=== PATIENT | female | born 1950 | race Caucasian/White ===

== ENCOUNTER 2019-05-04 12:49 | Outpatient (CLI) | payer MEDICARE, MEDICAID, SELFPAY ==
--- NOTE | 2019-05-04 13:19 | MR_ITS ---
WS: [id number] MRI LUMBAR SPINE WITH CONTRAST TECHNIQUE: Sagittal T1, T2 and STIR imaging. Axial T1 and T2 imaging. Post gadolinium imaging was obt ained. CLINICAL INFORMATION: LUMBAR POST-LAMINECTOMY SYNDROME COMPARISON: MRI FINDINGS: Mild lumbar curve. No acute compression. Grade 1 anterolisthesis L4 on L5 has progressed since 2017. Anterolisthesis measures 6 mm. Disc desic cation L2-3 has progressed since 2017 with endplate edema. T2 hyperintensity in the disc space with p rominent endplate and paravertebral and epidural enhancement. Findings may be degenerative/inflammato ry however considering prominent enhancement and T2 hyperintensity in the disc space, discitis is an additional consideration. No epidural abscess. No endplate erosion. Recommend correlation for infecti on. L1-L2: Tiny left foraminal protrusion. Mild left and no significant right foraminal narrowing. Mild f acet arthropathy. L2-L3: Disc desiccation with endplate edema. Mild disc bulging with osteophytic ridging. Mild right a nd no significant left foraminal narrowing. Moderate facet arthropathy. Mild central canal stenosis. L3-L4: No significant disc bulging. Mild facet arthropathy. Spinal canal and foramen are patent. L4-L5: Grade 1 anterolisthesis. Right pericentral disc bulging with impingement on the right subartic ular recess. Mild/moderate facet arthropathy. Moderate right and mild left foraminal narrowing. Prior hemilaminectomy defects. Normal postoperative enhancement. L5-S1: Small shallow central disc protrusion with slight effacement of the ventral thecal sac. Spinal canal is patent. Mild left and no significant right foraminal narrowing. Mild facet arthropathy. Visualized pelvic bony structures: Normal. Paravertebral soft tissues: Normal. MR/MR lumbar spine wo/w con [id number] IMPRESSION: 1. Disc desiccation at L2-L3 has progressed with T2 signal abnormality in the disc space. Endplate edema with paravertebral enhancement. Differential conside rations include degenerative arthritis versus discitis. Recommend correlation f or infection and interval follow-up with MRI in 4-6 weeks if suspicion for infe ction. No endplate erosion. 2. Grade 1 anterolisthesis L4 on L5 has increased compared to previous measuri ng 6 mm today. Mild narrowing of the right subarticular recess with moderate ri ght foraminal narrowing. Impingement on the exiting right L4 nerve root. 3. Prior laminectomy defects L4-5. 4. Shallow central protrusion L5-S1 contacts the traversing S1 nerve roots. Mi ld left L5-S1 foraminal narrowing. 5. C6 moderate central canal stenosis in the cervical spine seen on the instrumentation fitter imaging. This can be followed up with MRI.
[2019-05-04 15:46] LABS: Blood Urea Nitrogen 15 mg/dL (8-23); Glomerular Filtration Rate 62.1 mL/min (90-130)
== END 2019-05-04 12:50 | disposition home or self-care (01) ==
PROVIDERS: PCP Family Medicine; Visit Provider Licensed Practical Nurse
DX: M96.1 Postlaminectomy syndrome, not elsewhere classified (principal); M51.27 Other intervertebral disc displacement, lumbosacral region; M48.02 Spinal stenosis, cervical region
CPT/HCPCS: 72158; 82565; 84520; A9579

== ENCOUNTER → 2019-05-11 18:08 | Outpatient (BNVA) | payer MEDICARE, MEDICAID, SELFPAY | PROVIDERS: PCP Family Medicine; Visit Provider Licensed Practical Nurse | DX: M46.40 Discitis, unspecified, site unspecified (principal) | CPT/HCPCS: 80053; 85007; 85027; 85651; 86140 ==

== ENCOUNTER 2019-06-04 14:16 | Outpatient (CLI) | payer MEDICARE, MEDICAID, SELFPAY ==
--- NOTE | 2019-06-04 15:15 | MR_ITS ---
WS: [id number] MRI LUMBAR SPINE NONCONTRAST TECHNIQUE: Sagittal T1, T2 and STIR imaging. Axial T1 and T2 imaging. CLINICAL INFORMATION: Discitis COMPARISON: MRI May 04, 2019 FINDINGS: Stable grade 1 anterolisthesis L4 on L5 measuring 6 mm. Again seen is T2 signal normality in the disc space at L2-3 with disc desiccation and endplate edema. Overall this appears unchanged in appearance since May 04, 2019. No evidence of endplate erosion or progressed edema. No evidence of paravert ebral or epidural abscess. L1-L2: Tiny left foraminal protrusion. Mild left and no significant right foraminal narrowing. Mild f acet arthropathy. L2-L3: Disc desiccation with endplate edema. Mild disc bulging with osteophytic ridging. Mild right a nd no significant left foraminal narrowing. Moderate facet arthropathy. Mild central canal stenosis. L3-L4: No significant disc bulging. Mild facet arthropathy. Spinal canal and foramen are patent. L4-L5: Grade 1 anterolisthesis. Right pericentral disc bulging with impingement on the right subartic ular recess. Moderate facet arthropathy. Moderate right and mild left foraminal narrowing. Prior chris laminectomy defects. L5-S1: Small shallow central disc protrusion with slight effacement of the ventral thecal sac. Spina l canal is patent. Mild left and no significant right foraminal narrowing. Mild facet arthropathy. MR/MR lumbar spine wo con* [id number] IMPRESSION: 1. Stable disc desiccation at L2-3 with T2 signal abnormality in the disc spac e. Stable endplate edema. No evidence of endplate erosion or bony destruction. No significant interval changes. Differential considerations include degenerati ve arthritis or indolent discitis considering stability. 2. No other significant changes. 3. Stable grade 1 anterolisthesis L4 on L5 measuring 6 mm.
== END 2019-06-04 14:17 | disposition home or self-care (01) ==
PROVIDERS: PCP Family Medicine; Visit Provider Licensed Practical Nurse
DX: M46.46 Discitis, unspecified, lumbar region (principal)
CPT/HCPCS: 72148

== ENCOUNTER 2019-07-25 10:36 | Outpatient (CLI) | payer MEDICARE, MEDICAID, SELFPAY ==
--- NOTE | 2019-07-25 10:51 | MR_ITS ---
WS: [id number] MRI LUMBAR SPINE NONCONTRAST HISTORY: Discitis Patient was unable to complete examination with contrast due to previous significant muscle spasms. D ue to pain and spasms only noncontrast exam was performed. COMPARISON: 06/04/2019 TECHNIQUE: Sagittal and axial multisequence imaging is submitted. Advanced degenerative changes in the cervical spine with multilevel areas of stenosis. L4 anterolisthesis by 7.1 mm with unroofing of the disc. There is disc space narrowing throughout the lumbar spine. Moderate narrowing of the L2-3 disc space. Low signal on the T1 sequences within the adjacent endplat es and increased on the T2 and FLAIR sequence. The amount of increased signal is slightly improved. T here is continued fluid along the disc space. No progression of disease. Enhancement cannot be evalua ruma as patient was unable to tolerate the examination and postcontrast imaging. Conus terminates normally at L1-2 disc level. L1-L2: Mild facet joint arthritis. Mild bilateral foraminal narrowing. L2-L3: Annular disc bulging with facet arthropathy. No epidural fluid collection. Mild bilateral fora job narrowing. Mild facet arthropathy. L3-L4: Mild annular disc bulging without stenosis. L4-L5: Grade 1 anterolisthesis with unroofing of the disc. Anterolisthesis by 7.1 mm. RIGHT paracentr al disc bulging and herniation. There is impingement into the RIGHT subarticular recess and foramen. Moderate RIGHT subarticular and foraminal stenosis. Mild on the LEFT. L5-S1: Mild annular disc bulging. Mild LEFT foraminal stenosis. Paraspinal soft tissues are negative. No edema. Mild atrophy of the psoas muscles. RIGHT renal cyst. MR/MR lumbar spine wo con* [id number] IMPRESSION: 1. Limited evaluation. Patient was unable to tolerate postcontrast evaluation. 2. Marrow signal and the signal within the disc at L2-3 is similar to prior st udies with no progression or epidural abscess. This may be degenerative in etio logy or low-grade/indolent infection. Long-term stability is evident. 3. Moderate-sized RIGHT paracentral disc herniation at L4-5 with moderate RIGH T subarticular recess and foraminal stenosis. No interval change. 4. L4 anterolisthesis by 7.1 mm is unchanged.
--- NOTE | 2019-07-25 10:51 | XR_ITS ---
WS: [id number] LATERAL LUMBAR SPINE: 3 view. Lateral radiographs are performed in upright neutral, flexion and extension to the patient's toleranc e. HISTORY: Low back pain COMPARISON: 08/06/2016 L4 anterolisthesis by 13.3 mm on neutral imaging. Slight increased to 15.8 mm with flexion and 14 mm during extension. The anterolisthesis has increased from approximately 9 mm as seen in 2017. Advanced degenerative changes at L2-3 disc level. Mild changes throughout the remaining disc levels. No fractures. Slight rotation of vertebral bodies due to the scoliosis. Calcifications scattered throughout the abdominal aorta. XR/XR lumbar spine f/e only [id number] IMPRESSION: 1. Mild flexion extension instability of L4 with grade 2 spondylolisthesis. 2. Progression of degenerative changes throughout the lumbar spine since 2017.
[2019-07-25 12:11] LABS: Blood Urea Nitrogen 21 mg/dL (8-23); Glomerular Filtration Rate 40.6 mL/min (90-130)
== END 2019-07-25 10:37 | disposition home or self-care (01) ==
LOC: RADWPI 10:46
PROVIDERS: PCP Family Medicine; Visit Provider Licensed Practical Nurse
DX: M96.1 Postlaminectomy syndrome, not elsewhere classified (principal); M53.2X6 Spinal instabilities, lumbar region
CPT/HCPCS: 72120; 72148; 82565; 84520

== ENCOUNTER 2019-08-06 08:57 | Outpatient (CLI) | payer MEDICARE, MEDICAID, SELFPAY ==
--- NOTE | 2019-08-06 09:04 | US_ITS ---
WS: [id number] TRANSABDOMINAL PELVIC AND TRANSVAGINAL PELVIC ULTRASOUND HISTORY: GENERALIZED ABDOMEN PAIN COMPARISON: None available. Uterus: 6.8 cm x 3.8 cm x 3.5 cm. Normal anteverted uterus. No fibroid or mass. Endometrium: 0.7 cm. Endometrium is very mildly thickened and heterogeneous with no discrete mass darius ntified. Neither ovary is identified. No adnexal masses. No free fluid. US/US pelvic with transvaginal IMPRESSION: 1. Very minimally prominent endometrium. Differential includes mild hyperplasi a and early neoplasm. 2. Neither ovary identified.
--- NOTE | 2019-08-06 09:05 | US_ITS ---
WS: [id number] Complete ABDOMINAL ULTRASOUND HISTORY: GENERALIZED ABDOMEN PAIN COMPARISON: None available. Liver: 16.4 cm in length. Liver is poorly visualized. Poor penetration of the liver with variable ech ogenicity. Gallbladder: Prior cholecystectomy. Pancreas: Not well visualized. CBD: 0.5 cm. Right kidney: 10.2 cm x 5.3 cm x 4.7 cm. No mass, cortical thickening or hydronephrosis. Left kidney: 10.3 cm x 5.2 cm x 4.9 cm. Normal size kidney. Superior pole cyst measures 2.0 x 1.5 x 1.8 cm. Spleen: Normal size and echogenicity. Poorly visualized aorta. No ascites. US/US abdomen complete* [id number] IMPRESSION: 1. Technically very limited and difficult evaluation of the abdominal structur es. 2. Prior cholecystectomy. 3. Hepatic steatosis. 4. For further evaluation of the visceral organs consider CT follow-up with IV and oral contrast.
== END 2019-08-06 08:58 | disposition home or self-care (01) ==
PROVIDERS: PCP Family Medicine; Visit Provider Family Medicine
DX: R10.84 Generalized abdominal pain (principal); K76.0 Fatty (change of) liver, not elsewhere classified; R10.2 Pelvic and perineal pain
CPT/HCPCS: 76700; 76830; 76856

== ENCOUNTER 2019-10-16 04:17 | Observation (INO) | payer MEDICARE, MEDICAID, SELFPAY ==
[2019-10-16] VITALS (29 sets, daily range): BP systolic 146–193; BP diastolic 68–106; PULSE 48–86; RESP 14–28; TEMP 36.3–37.1; O2SAT 74–100; BMI 36.2
--- NOTE | 2019-10-16 04:37 | PC.NURSE ---
states she took oxycodone, maybe 2 tabs. Called her daughter crying with right shoulder and arm pain. States she fell yesterday in her bathroom. Caught herself before falling to the fall. No obvious signs of injury
--- NOTE | 2019-10-16 04:44 | PC.NURSE ---
Took 2 Oxycodone prior to coming to the ER. Falls to sleep easy but arouses and responds appropriately.
--- NOTE | 2019-10-16 04:46 | XR_ITS ---
WS: [id number] XR chest 1V portable [id number] REASON FOR EXAM: Shortness of breath FINDINGS: Clearing of the lingula pneumonia X seen on January 08, 2019. There is cardiomegaly with arteriosclerotic changes. The remaining lung mendez show chronic interstitial findings. No pneumonia. The hilum and apices normal. Arteriosclerotic changes. XR/XR chest 1V portable [id number] IMPRESSION: Arteriosclerotic heart disease Chronic interstitial findings. Arteriosclerotic changes.
--- NOTE | 2019-10-16 04:46 | XR_ITS ---
WS: [id number] XR shoulder RT min 2V* [id number] REASON FOR EXAM: Injury FINDINGS: Calcification is noted over the greater tuberosity of the humerus. The acromioclavicular joints were normal. The scapula and clavicle are normal. There is no definite fractures seen. XR/XR shoulder RT min 2V* [id number] IMPRESSION: Calcific tendinitis of the right shoulder.
--- NOTE | 2019-10-16 04:46 | XR_ITS ---
WS: [id number] [place] [id number] REASON FOR EXAM: Injury FINDINGS: Calcific tendinitis is again seen in the greater tuberosity. The humerus appears to be intact there is no fractures or dislocations seen. No abnormalities in the soft tissue. XR/[place] [id number] IMPRESSION: Negative right humerus Calcific tendinitis at the shoulder.
--- NOTE | 2019-10-16 04:46 | CTR_ITS ---
PROCEDURE INFORMATION: Exam: CT Head Without Contrast Exam date and time: 10/16/2019 6:15 AM Age: 69 years old Clinical indication: Pain; Altered mental status/memory loss; Patient HX: altered mental status. Hypoxic. Patient given Narcan. C/O headache. TECHNIQUE: Imaging protocol: Computed tomography of the head without contrast. Radiation optimization: All CT scans at this facility use at least one of these dose optimization techniques: automated exposure control; mA and/or kV adjustment per patient size (includes targeted exams where dose is matched to clinical indication); or iterative reconstruction. COMPARISON: No relevant prior studies available. RADIATION DOSE METRICS: Total DLP: 606.85 mGy-cm FINDINGS: Brain: Small chronic superior right caudate head lacunar infarction. Minimal hypoattenuating foci are noted in the anterior lateral ventricular periventricular white matter bilaterally. No intracranial hemorrhage. No intracranial mass, or acute cortical infarction identified. Ventricles: No hydrocephalus or evidence of increased intracranial pressure. Mild prominence of the subarachnoid spaces is consistent with the patient's age of 69 years. Bones/joints: Unremarkable. No acute fracture. Sinuses: Visualized sinuses are unremarkable. No fluid levels. Mastoid air cells: Visualized mastoid air cells are well aerated. Orbits: Bilateral ocular proptosis. Vasculature: Atherosclerotic calcifications are present involving the carotid artery siphons bilaterally and the right vertebral artery. Dental: Edentulous maxilla and mandible. Soft tissues: Unremarkable. CT/CT head wo con* [id number] IMPRESSION: 1. Small chronic superior right caudate head lacunar infarction. 2. Bilateral ocular proptosis. 3. Age appropriate mild supratentorial and infratentorial atrophy. 4. 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 5. No acute intracranial abnormality identified. Radiation Dose CTDIVOL = (mGy): DLP = 606.85 (mGy-cm)
--- NOTE | 2019-10-16 04:47 | ECG_ITS ---
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 Measurements Intervals Gaffney Rate: 69 P: 46 DC: 138 QRS: 34 QRSD: 85 T: 66 QT: 388 QTc: 417 Interpretive Statements SINUS RHYTHM Compared to ECG 01/08/2019 21:20:01 Sinus bradycardia no longer present Sinus arrhythmia no longer present Electronically Signed On 10-17-2019 13:48:30 CDT by Rina Pérez M.D. [id number]
--- NOTE | 2019-10-16 04:53 | ED_ITS ---
Documented by User: Renata Gillis 10/16/19 05:45 HPI - General Adult General: Chief complaint: General Medical Stated complaint: R HAND/ARM PAIN; R FOOT PAIN; R SIDE PAIN Time Seen by Provider: 10/16/19 06:59 Source: patient and family Mode of arrival: wheelchair Limitations: altered mental status History of Present Illness: HPI narrative: Ms. Mak is a 69-year-old female who is escorted by her daughter here to the ER. She is complaining of right sided neck, shoulder and arm pain since she fell and had a jolting type injury to her arm on Tuesday. The patient is altered and very somnolent. Nursing informs me the patient has had to have oxygen applied to keep her pulse ox above 70%. The patient's daughter states that she has been taking extra medication including OxyContin, tramadol and muscle relaxers. Further history is taken from the daughter and from old charts. Review of Systems General: Reports: ROS unobtainable due to mental status PFS ED PFSH: Medical History (Updated 10/16/19 @ 05:45 by Renata Gillis) CVA (cerebral vascular accident) Displacement of lumbar disc with radiculopathy DM type 2 (diabetes mellitus, type 2) Hypertension Neuropathy Neuropathy, peripheral Restless leg syndrome Spondylolisthesis, lumbar region Surgical History History of cholecystectomy (~1974) History of knee surgery (~2011) arthroscopic History of laminectomy (10/29/13) Bilateral L4-L5 Laminotomy/Foraminotomy. Dr. Molina Family History Mother Lung disease Sister Diabetes Grandmother Cancer Social History Smoking and tobacco status: former smoker Alcohol intake: current Alcohol intake frequency: holidays/special occasions only Household members: none Marital status: / Current occupational status: disabled History of recent travel: No Physical Exam Const: GENERAL APPEARANCE: lethargic NUTRITIONAL APPEARANCE: obese ORIENTATION/CONSCIOUSNESS: Yes awake, Yes oriented to person and Yes lethargic HENMT: COMMON NORMALS: normocephalic, atraumatic, external ears normal, EAC's normal and Normal external nose present HEAD & SCALP: normal to inspection, normocephalic and atraumatic FACE & SINUS: normal facial exam and face symmetric NOSE: Normal external nose present and Normal nares present EXTERNAL EAR: Yes external ears normal EXTERNAL AUDITORY CANAL: EAC's normal MOUTH: Normal oral and palatal mucosa present, lip normal and tongue normal Eye: COMMON NORMALS: Equal, round and reactive pupils present and conjunctivae normal GENERAL EYE: appearance normal, both eyes and all related structures ALIGNMENT: Yes alignment normal PERIORBITAL: periorbital findings normal EYELID: eyelids normal CONJUNCTIVA: Yes conjunctivae normal SCLERA: sclerae normal PUPIL: Yes Equal, round and reactive pupils present Neck/C-Spine: COMMON NORMALS: full ROM, no lymphadenopathy, supple, no meningeal signs and no JVD GENERAL: Yes normal visual inspection and Yes trachea midline Chest: COMMONS NORMALS: normal inspection of the chest and normal palpation of entire chest wall Resp: COMMON NORMALS: normal respiratory effort, No retractions and No use of accessory muscles EFFORT & INSPECTION: Yes able to speak in complete sentences and Yes symmetric chest movement AUSCULTATION: no crackles, no rales, no rhonchi and no wheezes Cardio: COMMON NORMALS: no JVD, regular rate, regular rhythm, S1 normal heart sound present and S2 normal heart sound present RATE: regular rate RHYTHM: regular rhythm HEART SOUNDS: S1 normal heart sound present, S2 normal heart sound present, no click, no gallops, no murmurs, no rubs and abnormal split S2 GI: COMMON NORMALS: Soft to palpation and No hepatosplenomegaly present PALPATION: Yes Soft to palpation, No Tenderness to palpation present (GI), No Guarding due to palpation present (GI), No Rigid due to palpation, Yes No hepatosplenomegaly present, No Hernia present, No Palpable mass present and No Pulsatile mass present : COMMON NORMALS: Yes no CVA tenderness BLADDER/KIDNEY EXAM: Yes no CVA tenderness EXTERNAL FEMALE EXAM: No Hernia present Back/Pelvis: COMMON NORMALS: no CVA tenderness, thoracic and lumbar spine normal to inspection, no thoracic nor lumbar tenderness and thoraco-lumbar ROM normal Extremity: COMMON NORMALS: normal to inspection, full ROM, capillary refill normal, no joint enlargement, no clubbing, cyanosis or edema and no calf tenderness Neuro: KATHY COMA SCALE: document GCS findings [place] coma scale eye opening: Spontaneous Kathy coma scale verbal response: Confused [place] coma scale motor response: Obey commands [place] coma scale total score: 14 COMMON NORMALS: CN's II-XII intact bilaterally, moves all extremities, no focal motor deficits and no sensory deficits noted SENSORIUM/ORIENTATION: Yes oriented to person and Yes lethargic MENINGEAL SIGNS: Yes no meningeal signs SPEECH: speech normal Skin: COMMON NORMALS: no rashes or lesions noted, turgor normal, no jaundice, no petechiae and no mottling GENERAL SKIN EXAM: no rashes or lesions noted and turgor normal Course Vital Signs: Vital signs: Vital Signs Temperature 98.7 F 10/16/19 04:34 Pulse Rate 61 10/16/19 06:23 Respiratory Rate 20 H 10/16/19 06:23 Blood Pressure 174/99 10/16/19 06:23 Pulse Oximetry 100 10/16/19 06:23 [facility] - General Adult Lab Data: Attestation: I reviewed the patient's lab results. Labs: Lab Results 10/16/19 10/16/19 10/16/19 Range/Units 04:53 05:02 05:02 WBC 3.4 L (4.0-10.0) 10^3/ uL RBC 4.87 (4.1-5.3) 10^6/u L Hgb 14.4 (11.5-15.3) g/dL Hct 44.4 (37.0-47.0) % MCV 91.2 (81-99) fL MCH 29.6 (28.0-34.0) pg MCHC 32.4 (30.0-36.0) g/dL RDW 13.2 (12.1-15.1) % Plt Count 106 L (130-400) 10^3/c mm MPV 11.2 H (7.4-10.4) fL Neut % (Auto) 65.5 % Lymph % (Auto) 18.4 % [place] % (Auto) 11.0 % Eos % (Auto) 4.5 % Baso % (Auto) 0.3 % Neut # (Auto) 2.2 (1.8-7.7) 10^3/u L Lymph # (Auto) 0.6 L (0.8-4.8) 10^3/u L [place] # (Auto) 0.4 (0.2-0.9) 10^3/u L Eos # (Auto) 0.2 (0.0-0.8) 10^3/u L Baso # (Auto) 0.0 (0.0-0.1) 10^3/u L Nucleated RBC % (a uto) 0 % Nucleated RBCs # 0.0 /100WBC PT 12.00 (10.5-13.3) SECO NDS INR 0.86 (0.8-1.2) Specimen Type Sample Site ABG pH (7.35-7.45) ABG pCO2 (35-45) mmHg ABG pO2 (80.0-100.0) mmH g ABG HCO3 (22-26) mmol/L ABG O2 Saturation ABG Base Excess (-2.0-2.0) mmol/ L Trever Test A-a O2 Gradient (5-10) mmHg Hematocrit (37-47) % Hgb O2 Saturation (95-100) % Carboxyhemoglobin (0.4-20.1) %THgb Methemoglobin (0.4-1.5) % Total Hemoglobin (12-16) g/dL Ionized Calcium (1.1-1.4) mmol/L O2 Delivery Device O2 Liters/Min % Hides Inspector ID Sodium (136-145) mmol/L Potassium (3.5-5.1) mmol/L Chloride (98-107) mmol/L Carbon Dioxide (22-29) mmol/L Anion Gap (5-19) BUN (8-23) mg/dL Creatinine (0.5-0.9) mg/dL GFR Calculation (90-130) mL/min Glucose (65-115) mg/dL POC Glucose 172 (70-110) mg/dL Calculated Osmolal ity (285-295) mOsm/k g Calcium (8.5-10.5) mg/dL Total Bilirubin (0.15-1.2) mg/dL AST (0-32) U/L ALT (0-33) U/L Alkaline Phosphata se (35-105) IU/L Ammonia (11-51) umol/L Troponin T Baselin e (0-10) ng/L Troponin T 120 Min [place] (0-10) ng/L Delta Troponin T (0-10) ABS# Total Protein (6.6-8.7) g/dL Albumin (3.5-5.2) g/dL Globulin (1.3-4.6) g/dL Urine Color (Yellow) Urine Appearance (CLEAR) Urine pH (5-7) Ur Specific Gravit y (1.005-1.030) Urine Protein (Negative) Urine Glucose (UA) (Normal) Urine Ketones (Negative) Urine Blood (Negative) Urine Nitrate (Negative) Urine Bilirubin (NEGATIVE) Urine Urobilinogen (Negative) mg/dL Ur Leukocyte Candelaria ase (Negative) Urine RBC (0-2) /hpf Urine WBC (0-5) /hpf Ur Squamous Epith Cells (0-5) Urine Bacteria (NONE) Salicylates (3-10) mg/dL Urine Opiates Scre en (Negative) ng/mL Acetaminophen (10-30) ug/mL Ur Barbiturates Sc reen (Negative) ng/mL Ur Phencyclidine S crn (Negative) ng/mL Ur Amphetamines Sc reen (Negative) ng/mL U Benzodiazepines Scrn (Negative) ng/mL Urine Cocaine Scre en (Negative) ng/mL U Marijuana (THC) Screen (Negative) ng/mL Ethyl Alcohol (0-10) mg/dL 10/16/19 10/16/19 10/16/19 Range/Units 05:02 05:02 05:02 WBC (4.0-10.0) 10^3/ uL RBC (4.1-5.3) 10^6/u L Hgb (11.5-15.3) g/dL Hct (37.0-47.0) % MCV (81-99) fL MCH (28.0-34.0) pg MCHC (30.0-36.0) g/dL RDW (12.1-15.1) % Plt Count (130-400) 10^3/c mm MPV (7.4-10.4) fL Neut % (Auto) % Lymph % (Auto) % [place] % (Auto) % Eos % (Auto) % Baso % (Auto) % Neut # (Auto) (1.8-7.7) 10^3/u L Lymph # (Auto) (0.8-4.8) 10^3/u L [place] # (Auto) (0.2-0.9) 10^3/u L Eos # (Auto) (0.0-0.8) 10^3/u L Baso # (Auto) (0.0-0.1) 10^3/u L Nucleated RBC % (a uto) % Nucleated RBCs # /100WBC PT (10.5-13.3) SECO NDS INR (0.8-1.2) Specimen Type Sample Site ABG pH (7.35-7.45) ABG pCO2 (35-45) mmHg ABG pO2 (80.0-100.0) mmH g ABG HCO3 (22-26) mmol/L ABG O2 Saturation ABG Base Excess (-2.0-2.0) mmol/ L Trever Test A-a O2 Gradient (5-10) mmHg Hematocrit (37-47) % Hgb O2 Saturation (95-100) % Carboxyhemoglobin (0.4-20.1) %THgb Methemoglobin (0.4-1.5) % Total Hemoglobin (12-16) g/dL Ionized Calcium (1.1-1.4) mmol/L O2 Delivery Device O2 Liters/Min % Hides Inspector ID Sodium 138 (136-145) mmol/L Potassium 4.7 (3.5-5.1) mmol/L Chloride 99 (98-107) mmol/L Carbon Dioxide 27 (22-29) mmol/L Anion Gap 16.7 (5-19) BUN 14 (8-23) mg/dL Creatinine 0.7 (0.5-0.9) mg/dL GFR Calculation 82.7 L (90-130) mL/min Glucose 190 H (65-115) mg/dL POC Glucose (70-110) mg/dL Calculated Osmolal ity 287 (285-295) mOsm/k g Calcium 9.3 (8.5-10.5) mg/dL Total Bilirubin 0.5 (0.15-1.2) mg/dL AST 22 (0-32) U/L ALT 26 (0-33) U/L Alkaline Phosphata se 61 (35-105) IU/L Ammonia 21 (11-51) umol/L Troponin T Baselin e 13 H (0-10) ng/L Troponin T 120 Min [place] (0-10) ng/L Delta Troponin T (0-10) ABS# Total Protein 7.0 (6.6-8.7) g/dL Albumin 4.0 (3.5-5.2) g/dL Globulin 3.0 (1.3-4.6) g/dL Urine Color (Yellow) Urine Appearance (CLEAR) Urine pH (5-7) Ur Specific Gravit y (1.005-1.030) Urine Protein (Negative) Urine Glucose (UA) (Normal) Urine Ketones (Negative) Urine Blood (Negative) Urine Nitrate (Negative) Urine Bilirubin (NEGATIVE) Urine Urobilinogen (Negative) mg/dL Ur Leukocyte Candelaria ase (Negative) Urine RBC (0-2) /hpf Urine WBC (0-5) /hpf Ur Squamous Epith Cells (0-5) Urine Bacteria (NONE) Salicylates (3-10) mg/dL Urine Opiates Scre en (Negative) ng/mL Acetaminophen (10-30) ug/mL Ur Barbiturates Sc reen (Negative) ng/mL Ur Phencyclidine S crn (Negative) ng/mL Ur Amphetamines Sc reen (Negative) ng/mL U Benzodiazepines Scrn (Negative) ng/mL Urine Cocaine Scre en (Negative) ng/mL U Marijuana (THC) Screen (Negative) ng/mL Ethyl Alcohol < 10 (0-10) mg/dL 10/16/19 10/16/19 10/16/19 Range/Units 05:02 05:08 05:44 WBC (4.0-10.0) 10^3/ uL RBC (4.1-5.3) 10^6/u L Hgb (11.5-15.3) g/dL Hct (37.0-47.0) % MCV (81-99) fL MCH (28.0-34.0) pg MCHC (30.0-36.0) g/dL RDW (12.1-15.1) % Plt Count (130-400) 10^3/c mm MPV (7.4-10.4) fL Neut % (Auto) % Lymph % (Auto) % [place] % (Auto) % Eos % (Auto) % Baso % (Auto) % Neut # (Auto) (1.8-7.7) 10^3/u L Lymph # (Auto) (0.8-4.8) 10^3/u L [place] # (Auto) (0.2-0.9) 10^3/u L Eos # (Auto) (0.0-0.8) 10^3/u L Baso # (Auto) (0.0-0.1) 10^3/u L Nucleated RBC % (a uto) % Nucleated RBCs # /100WBC PT (10.5-13.3) SECO NDS INR (0.8-1.2) Specimen Type Arterial Arterial Sample Site Brachial, right Brachial, right ABG pH 7.25 L 7.30 L (7.35-7.45) ABG pCO2 71.6 H* 61.2 H* (35-45) mmHg ABG pO2 63.0 L 63.6 L (80.0-100.0) mmH g ABG HCO3 31.5 H 30.3 H (22-26) mmol/L ABG O2 Saturation 88.9 ABG Base Excess 2.0 2.3 H (-2.0-2.0) mmol/ L Trever Test Pos Pos A-a O2 Gradient 1.8 L (5-10) mmHg Hematocrit 43.7 43.5 (37-47) % Hgb O2 Saturation 86.9 L (95-100) % Carboxyhemoglobin 1.5 (0.4-20.1) %THgb Methemoglobin 0.7 (0.4-1.5) % Total Hemoglobin 14.3 (12-16) g/dL Ionized Calcium 1.2 (1.1-1.4) mmol/L O2 Delivery Device Nc Nc O2 Liters/Min 4.0 4.0 % Hides Inspector ID [id number] [email or web address] Sodium 139.0 (136-145) mmol/L Potassium 4.6 (3.5-5.1) mmol/L Chloride (98-107) mmol/L Carbon Dioxide (22-29) mmol/L Anion Gap (5-19) BUN (8-23) mg/dL Creatinine (0.5-0.9) mg/dL GFR Calculation (90-130) mL/min Glucose 188.0 H (65-115) mg/dL POC Glucose (70-110) mg/dL Calculated Osmolal ity (285-295) mOsm/k g Calcium (8.5-10.5) mg/dL Total Bilirubin (0.15-1.2) mg/dL AST (0-32) U/L ALT (0-33) U/L Alkaline Phosphata se (35-105) IU/L Ammonia (11-51) umol/L Troponin T Baselin e (0-10) ng/L Troponin T 120 Min [place] (0-10) ng/L Delta Troponin T (0-10) ABS# Total Protein (6.6-8.7) g/dL Albumin (3.5-5.2) g/dL Globulin (1.3-4.6) g/dL Urine Color (Yellow) Urine Appearance (CLEAR) Urine pH (5-7) Ur Specific Gravit y (1.005-1.030) Urine Protein (Negative) Urine Glucose (UA) (Normal) Urine Ketones (Negative) Urine Blood (Negative) Urine Nitrate (Negative) Urine Bilirubin (NEGATIVE) Urine Urobilinogen (Negative) mg/dL Ur Leukocyte Candelaria ase (Negative) Urine RBC (0-2) /hpf Urine WBC (0-5) /hpf Ur Squamous Epith Cells (0-5) Urine Bacteria (NONE) Salicylates < 0.3 L (3-10) mg/dL Urine Opiates Scre en (Negative) ng/mL Acetaminophen < 10.0 L (10-30) ug/mL Ur Barbiturates Sc reen (Negative) ng/mL Ur Phencyclidine S crn (Negative) ng/mL Ur Amphetamines Sc reen (Negative) ng/mL U Benzodiazepines Scrn (Negative) ng/mL Urine Cocaine Scre en (Negative) ng/mL U Marijuana (THC) Screen (Negative) ng/mL Ethyl Alcohol (0-10) mg/dL 10/16/19 10/16/19 10/16/19 Range/Units 05:57 07:13 07:40 WBC (4.0-10.0) 10^3/ uL RBC (4.1-5.3) 10^6/u L Hgb (11.5-15.3) g/dL Hct (37.0-47.0) % MCV (81-99) fL MCH (28.0-34.0) pg MCHC (30.0-36.0) g/dL RDW (12.1-15.1) % Plt Count (130-400) 10^3/c mm MPV (7.4-10.4) fL Neut % (Auto) % Lymph % (Auto) % [place] % (Auto) % Eos % (Auto) % Baso % (Auto) % Neut # (Auto) (1.8-7.7) 10^3/u L Lymph # (Auto) (0.8-4.8) 10^3/u L [place] # (Auto) (0.2-0.9) 10^3/u L Eos # (Auto) (0.0-0.8) 10^3/u L Baso # (Auto) (0.0-0.1) 10^3/u L Nucleated RBC % (a uto) % Nucleated RBCs # /100WBC PT (10.5-13.3) SECO NDS INR (0.8-1.2) Specimen Type Sample Site ABG pH (7.35-7.45) ABG pCO2 (35-45) mmHg ABG pO2 (80.0-100.0) mmH g ABG HCO3 (22-26) mmol/L ABG O2 Saturation ABG Base Excess (-2.0-2.0) mmol/ L Trever Test A-a O2 Gradient (5-10) mmHg Hematocrit (37-47) % Hgb O2 Saturation (95-100) % Carboxyhemoglobin (0.4-20.1) %THgb Methemoglobin (0.4-1.5) % Total Hemoglobin (12-16) g/dL Ionized Calcium (1.1-1.4) mmol/L O2 Delivery Device O2 Liters/Min % Hides Inspector ID Sodium (136-145) mmol/L Potassium (3.5-5.1) mmol/L Chloride (98-107) mmol/L Carbon Dioxide (22-29) mmol/L Anion Gap (5-19) BUN (8-23) mg/dL Creatinine (0.5-0.9) mg/dL GFR Calculation (90-130) mL/min Glucose (65-115) mg/dL POC Glucose (70-110) mg/dL Calculated Osmolal ity (285-295) mOsm/k g Calcium (8.5-10.5) mg/dL Total Bilirubin (0.15-1.2) mg/dL AST (0-32) U/L ALT (0-33) U/L Alkaline Phosphata se (35-105) IU/L Ammonia (11-51) umol/L Troponin T Baselin e (0-10) ng/L Troponin T 120 Min [place] 11.30 H (0-10) ng/L Delta Troponin T -1.70 L (0-10) ABS# Total Protein (6.6-8.7) g/dL Albumin (3.5-5.2) g/dL Globulin (1.3-4.6) g/dL Urine Color Yellow (Yellow) Urine Appearance Clear (CLEAR) Urine pH 5 (5-7) Ur Specific Gravit y 1.025 (1.005-1.030) Urine Protein Trace (Negative) Urine Glucose (UA) Norm (Normal) Urine Ketones Negative (Negative) Urine Blood Neg (Negative) Urine Nitrate Negative (Negative) Urine Bilirubin Neg (NEGATIVE) Urine Urobilinogen Norm (Negative) mg/dL Ur Leukocyte Candelaria ase Negative (Negative) Urine RBC None (0-2) /hpf Urine WBC None (0-5) /hpf Ur Squamous Epith Cells 5-10 H (0-5) Urine Bacteria Trace (NONE) Salicylates (3-10) mg/dL Urine Opiates Scre en Positive H (Negative) ng/mL Acetaminophen (10-30) ug/mL Ur Barbiturates Sc reen Negative (Negative) ng/mL Ur Phencyclidine S crn Negative (Negative) ng/mL Ur Amphetamines Sc reen Negative (Negative) ng/mL U Benzodiazepines Scrn Negative (Negative) ng/mL Urine Cocaine Scre en Negative (Negative) ng/mL U Marijuana (THC) Screen Negative (Negative) ng/mL Ethyl Alcohol (0-10) mg/dL Imaging Data^: Right Shoulder: My impression: No acute fractures or dislocations. Right Humerus: My impression: No acute fracture or dislocations. EKG Data^: EKG 1: Attestation: I personally reviewed and interpreted this EKG as follows: EKG interpretation date: 10/16/19 EKG interpretation time: 04:54 Interpretation: Normal sinus rhythm at 71 beats a minute, no blocks, normal intervals, T wave inversions in aVL, consistent with previous. Computer generated interpretation: Chest X-Ray 10/16/19 04:46 IMPRESSION: Arteriosclerotic heart disease Chronic interstitial findings. Arteriosclerotic changes. Head CT 10/16/19 04:46 IMPRESSION: 1. Small chronic superior right caudate head lacunar infarction. 2. Bilateral ocular proptosis. 3. Age appropriate mild supratentorial and infratentorial atrophy. 4. 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 5. No acute intracranial abnormality identified. Radiation Dose CTDIVOL = (mGy): DLP = 606.85 (mGy-cm) Humerus X-Ray 10/16/19 04:46 IMPRESSION: Negative right humerus Calcific tendinitis at the shoulder. Shoulder X-Ray 10/16/19 04:46 IMPRESSION: Calcific tendinitis of the right shoulder. Discharge Plan Discharge Admit Provider: Susan Abel Sign Out Sign Out Data: Patient Sign Out occurred on 10/16/19 at 06:59. Patient's care was discussed, and care was transferred from Renata Gillis to Frederic Sharp DO. Sign Out Comment: Case turned over to Dr. Sharp at change of shift. Last updated by Renata Gillis at 10/16/19 05:51 Coding Level of Care Code ED Tutoring Manager for Chg Fwd Exam Comprehensive Documented by User: Frederic Sharp DO 10/16/19 09:00 HPI - General Adult General: Chief complaint: General Medical Stated complaint: R HAND/ARM PAIN; R FOOT PAIN; R SIDE PAIN Time Seen by Provider: 10/16/19 06:59 PFS ED PFS: Medical History (Updated 10/16/19 @ 05:45 by Renata Gillis) CVA (cerebral vascular accident) Displacement of lumbar disc with radiculopathy DM type 2 (diabetes mellitus, type 2) Hypertension Neuropathy Neuropathy, peripheral Restless leg syndrome Spondylolisthesis, lumbar region Surgical History History of cholecystectomy (~1974) History of knee surgery (~2011) arthroscopic History of laminectomy (10/29/13) Bilateral L4-L5 Laminotomy/Foraminotomy. Dr. Molina Family History Mother Lung disease Sister Diabetes Grandmother Cancer Social History Smoking and tobacco status: former smoker Alcohol intake: current Alcohol intake frequency: holidays/special occasions only Household members: none Marital status: / Current occupational status: disabled History of recent travel: No Course Vital Signs: Vital signs: Vital Signs Temperature 98.7 F 10/16/19 04:34 Pulse Rate 61 10/16/19 06:23 Respiratory Rate 20 H 10/16/19 06:23 Blood Pressure 174/99 10/16/19 06:23 Pulse Oximetry 100 10/16/19 06:23 MDM - General Adult MDM Narrative: Medical decision making narrative: Assumed care at change of shift. Second blood gas improved over initial and BiPAP will continue the BiPAP and make adjustments on her medications while in the ER discussed with Dr. Abel she will be the admitting. Lab Data: Labs: Lab Results 10/16/19 10/16/19 10/16/19 Range/Units 04:53 05:02 05:02 WBC 3.4 L (4.0-10.0) 10^3/ uL RBC 4.87 (4.1-5.3) 10^6/u L Hgb 14.4 (11.5-15.3) g/dL Hct 44.4 (37.0-47.0) % MCV 91.2 (81-99) fL MCH 29.6 (28.0-34.0) pg MCHC 32.4 (30.0-36.0) g/dL RDW 13.2 (12.1-15.1) % Plt Count 106 L (130-400) 10^3/c mm MPV 11.2 H (7.4-10.4) fL Neut % (Auto) 65.5 % Lymph % (Auto) 18.4 % [place] % (Auto) 11.0 % Eos % (Auto) 4.5 % Baso % (Auto) 0.3 % Neut # (Auto) 2.2 (1.8-7.7) 10^3/u L Lymph # (Auto) 0.6 L (0.8-4.8) 10^3/u L [place] # (Auto) 0.4 (0.2-0.9) 10^3/u L Eos # (Auto) 0.2 (0.0-0.8) 10^3/u L Baso # (Auto) 0.0 (0.0-0.1) 10^3/u L Nucleated RBC % (a uto) 0 % Nucleated RBCs # 0.0 /100WBC PT 12.00 (10.5-13.3) SECO NDS INR 0.86 (0.8-1.2) Specimen Type Sample Site ABG pH (7.35-7.45) ABG pCO2 (35-45) mmHg ABG pO2 (80.0-100.0) mmH g ABG HCO3 (22-26) mmol/L ABG O2 Saturation ABG Base Excess (-2.0-2.0) mmol/ L Trever Test A-a O2 Gradient (5-10) mmHg Hematocrit (37-47) % Hgb O2 Saturation (95-100) % Carboxyhemoglobin (0.4-20.1) %THgb Methemoglobin (0.4-1.5) % Total Hemoglobin (12-16) g/dL Ionized Calcium (1.1-1.4) mmol/L O2 Delivery Device O2 Liters/Min % Hides Inspector ID Sodium (136-145) mmol/L Potassium (3.5-5.1) mmol/L Chloride (98-107) mmol/L Carbon Dioxide (22-29) mmol/L Anion Gap (5-19) BUN (8-23) mg/dL Creatinine (0.5-0.9) mg/dL GFR Calculation (90-130) mL/min Glucose (65-115) mg/dL POC Glucose 172 (70-110) mg/dL Calculated Osmolal ity (285-295) mOsm/k g Calcium (8.5-10.5) mg/dL Total Bilirubin (0.15-1.2) mg/dL AST (0-32) U/L ALT (0-33) U/L Alkaline Phosphata se (35-105) IU/L Ammonia (11-51) umol/L Troponin T Baselin e (0-10) ng/L Troponin T 120 Min [place] (0-10) ng/L Delta Troponin T (0-10) ABS# Total Protein (6.6-8.7) g/dL Albumin (3.5-5.2) g/dL Globulin (1.3-4.6) g/dL Urine Color (Yellow) Urine Appearance (CLEAR) Urine pH (5-7) Ur Specific Gravit y (1.005-1.030) Urine Protein (Negative) Urine Glucose (UA) (Normal) Urine Ketones (Negative) Urine Blood (Negative) Urine Nitrate (Negative) Urine Bilirubin (NEGATIVE) Urine Urobilinogen (Negative) mg/dL Ur Leukocyte Candelaria ase (Negative) Urine RBC (0-2) /hpf Urine WBC (0-5) /hpf Ur Squamous Epith Cells (0-5) Urine Bacteria (NONE) Salicylates (3-10) mg/dL Urine Opiates Scre en (Negative) ng/mL Acetaminophen (10-30) ug/mL Ur Barbiturates Sc reen (Negative) ng/mL Ur Phencyclidine S crn (Negative) ng/mL Ur Amphetamines Sc reen (Negative) ng/mL U Benzodiazepines Scrn (Negative) ng/mL Urine Cocaine Scre en (Negative) ng/mL U Marijuana (THC) Screen (Negative) ng/mL Ethyl Alcohol (0-10) mg/dL 10/16/19 10/16/19 10/16/19 Range/Units 05:02 05:02 05:02 WBC (4.0-10.0) 10^3/ uL RBC (4.1-5.3) 10^6/u L Hgb (11.5-15.3) g/dL Hct (37.0-47.0) % MCV (81-99) fL MCH (28.0-34.0) pg MCHC (30.0-36.0) g/dL RDW (12.1-15.1) % Plt Count (130-400) 10^3/c mm MPV (7.4-10.4) fL Neut % (Auto) % Lymph % (Auto) % [place] % (Auto) % Eos % (Auto) % Baso % (Auto) % Neut # (Auto) (1.8-7.7) 10^3/u L Lymph # (Auto) (0.8-4.8) 10^3/u L [place] # (Auto) (0.2-0.9) 10^3/u L Eos # (Auto) (0.0-0.8) 10^3/u L Baso # (Auto) (0.0-0.1) 10^3/u L Nucleated RBC % (a uto) % Nucleated RBCs # /100WBC PT (10.5-13.3) SECO NDS INR (0.8-1.2) Specimen Type Sample Site ABG pH (7.35-7.45) ABG pCO2 (35-45) mmHg ABG pO2 (80.0-100.0) mmH g ABG HCO3 (22-26) mmol/L ABG O2 Saturation ABG Base Excess (-2.0-2.0) mmol/ L [place] Test A-a O2 Gradient (5-10) mmHg Hematocrit (37-47) % Hgb O2 Saturation (95-100) % Carboxyhemoglobin (0.4-20.1) %THgb Methemoglobin (0.4-1.5) % Total Hemoglobin (12-16) g/dL Ionized Calcium (1.1-1.4) mmol/L O2 Delivery Device O2 Liters/Min % Hides Inspector ID Sodium 138 (136-145) mmol/L Potassium 4.7 (3.5-5.1) mmol/L Chloride 99 (98-107) mmol/L Carbon Dioxide 27 (22-29) mmol/L Anion Gap 16.7 (5-19) BUN 14 (8-23) mg/dL Creatinine 0.7 (0.5-0.9) mg/dL GFR Calculation 82.7 L (90-130) mL/min Glucose 190 H (65-115) mg/dL POC Glucose (70-110) mg/dL Calculated Osmolal ity 287 (285-295) mOsm/k g Calcium 9.3 (8.5-10.5) mg/dL Total Bilirubin 0.5 (0.15-1.2) mg/dL AST 22 (0-32) U/L ALT 26 (0-33) U/L Alkaline Phosphata se 61 (35-105) IU/L Ammonia 21 (11-51) umol/L Troponin T Baselin e 13 H (0-10) ng/L Troponin T 120 Min [place] (0-10) ng/L Delta Troponin T (0-10) ABS# Total Protein 7.0 (6.6-8.7) g/dL Albumin 4.0 (3.5-5.2) g/dL Globulin 3.0 (1.3-4.6) g/dL Urine Color (Yellow) Urine Appearance (CLEAR) Urine pH (5-7) Ur Specific Gravit y (1.005-1.030) Urine Protein (Negative) Urine Glucose (UA) (Normal) Urine Ketones (Negative) Urine Blood (Negative) Urine Nitrate (Negative) Urine Bilirubin (NEGATIVE) Urine Urobilinogen (Negative) mg/dL Ur Leukocyte [place] ase (Negative) Urine RBC (0-2) /hpf Urine WBC (0-5) /hpf Ur Squamous Epith Cells (0-5) Urine Bacteria (NONE) Salicylates (3-10) mg/dL Urine Opiates Scre en (Negative) ng/mL Acetaminophen (10-30) ug/mL Ur Barbiturates Sc reen (Negative) ng/mL Ur Phencyclidine S crn (Negative) ng/mL Ur Amphetamines Sc reen (Negative) ng/mL U Benzodiazepines Scrn (Negative) ng/mL Urine Cocaine Scre en (Negative) ng/mL U Marijuana (THC) Screen (Negative) ng/mL Ethyl Alcohol < 10 (0-10) mg/dL 10/16/19 10/16/19 10/16/19 Range/Units 05:02 05:08 05:44 WBC (4.0-10.0) 10^3/ uL RBC (4.1-5.3) 10^6/u L Hgb (11.5-15.3) g/dL Hct (37.0-47.0) % MCV (81-99) fL MCH (28.0-34.0) pg MCHC (30.0-36.0) g/dL RDW (12.1-15.1) % Plt Count (130-400) 10^3/c mm MPV (7.4-10.4) fL Neut % (Auto) % Lymph % (Auto) % [place] % (Auto) % Eos % (Auto) % Baso % (Auto) % Neut # (Auto) (1.8-7.7) 10^3/u L Lymph # (Auto) (0.8-4.8) 10^3/u L [place] # (Auto) (0.2-0.9) 10^3/u L Eos # (Auto) (0.0-0.8) 10^3/u L Baso # (Auto) (0.0-0.1) 10^3/u L Nucleated RBC % (a uto) % Nucleated RBCs # /100WBC PT (10.5-13.3) SECO NDS INR (0.8-1.2) Specimen Type Arterial Arterial Sample Site Brachial, right Brachial, right ABG pH 7.25 L 7.30 L (7.35-7.45) ABG pCO2 71.6 H* 61.2 H* (35-45) mmHg ABG pO2 63.0 L 63.6 L (80.0-100.0) mmH g ABG HCO3 31.5 H 30.3 H (22-26) mmol/L ABG O2 Saturation 88.9 ABG Base Excess 2.0 2.3 H (-2.0-2.0) mmol/ L Trever Test Pos Pos A-a O2 Gradient 1.8 L (5-10) mmHg Hematocrit 43.7 43.5 (37-47) % Hgb O2 Saturation 86.9 L (95-100) % Carboxyhemoglobin 1.5 (0.4-20.1) %THgb Methemoglobin 0.7 (0.4-1.5) % Total Hemoglobin 14.3 (12-16) g/dL Ionized Calcium 1.2 (1.1-1.4) mmol/L O2 Delivery Device Nc Nc O2 Liters/Min 4.0 4.0 % Hides Inspector ID [email or web address] Sodium 139.0 (136-145) mmol/L Potassium 4.6 (3.5-5.1) mmol/L Chloride (98-107) mmol/L Carbon Dioxide (22-29) mmol/L Anion Gap (5-19) BUN (8-23) mg/dL Creatinine (0.5-0.9) mg/dL GFR Calculation (90-130) mL/min Glucose 188.0 H (65-115) mg/dL POC Glucose (70-110) mg/dL Calculated Osmolal ity (285-295) mOsm/k g Calcium (8.5-10.5) mg/dL Total Bilirubin (0.15-1.2) mg/dL AST (0-32) U/L ALT (0-33) U/L Alkaline Phosphata se (35-105) IU/L Ammonia (11-51) umol/L Troponin T Baselin e (0-10) ng/L Troponin T 120 Min [place] (0-10) ng/L Delta Troponin T (0-10) ABS# Total Protein (6.6-8.7) g/dL Albumin (3.5-5.2) g/dL Globulin (1.3-4.6) g/dL Urine Color (Yellow) Urine Appearance (CLEAR) Urine pH (5-7) Ur Specific Gravit y (1.005-1.030) Urine Protein (Negative) Urine Glucose (UA) (Normal) Urine Ketones (Negative) Urine Blood (Negative) Urine Nitrate (Negative) Urine Bilirubin (NEGATIVE) Urine Urobilinogen (Negative) mg/dL Ur Leukocyte Candelaria ase (Negative) Urine RBC (0-2) /hpf Urine WBC (0-5) /hpf Ur Squamous Epith Cells (0-5) Urine Bacteria (NONE) Salicylates < 0.3 L (3-10) mg/dL Urine Opiates Scre en (Negative) ng/mL Acetaminophen < 10.0 L (10-30) ug/mL Ur Barbiturates Sc reen (Negative) ng/mL Ur Phencyclidine S crn (Negative) ng/mL Ur Amphetamines Sc reen (Negative) ng/mL U Benzodiazepines Scrn (Negative) ng/mL Urine Cocaine Scre en (Negative) ng/mL U Marijuana (THC) Screen (Negative) ng/mL Ethyl Alcohol (0-10) mg/dL 10/16/19 10/16/19 10/16/19 Range/Units 05:57 07:13 07:40 WBC (4.0-10.0) 10^3/ uL RBC (4.1-5.3) 10^6/u L Hgb (11.5-15.3) g/dL Hct (37.0-47.0) % MCV (81-99) fL MCH (28.0-34.0) pg MCHC (30.0-36.0) g/dL RDW (12.1-15.1) % Plt Count (130-400) 10^3/c mm MPV (7.4-10.4) fL Neut % (Auto) % Lymph % (Auto) % [place] % (Auto) % Eos % (Auto) % Baso % (Auto) % Neut # (Auto) (1.8-7.7) 10^3/u L Lymph # (Auto) (0.8-4.8) 10^3/u L [place] # (Auto) (0.2-0.9) 10^3/u L Eos # (Auto) (0.0-0.8) 10^3/u L Baso # (Auto) (0.0-0.1) 10^3/u L Nucleated RBC % (a uto) % Nucleated RBCs # /100WBC PT (10.5-13.3) SECO NDS INR (0.8-1.2) Specimen Type Sample Site ABG pH (7.35-7.45) ABG pCO2 (35-45) mmHg ABG pO2 (80.0-100.0) mmH g ABG HCO3 (22-26) mmol/L ABG O2 Saturation ABG Base Excess (-2.0-2.0) mmol/ L Trever Test A-a O2 Gradient (5-10) mmHg Hematocrit (37-47) % Hgb O2 Saturation (95-100) % Carboxyhemoglobin (0.4-20.1) %THgb Methemoglobin (0.4-1.5) % Total Hemoglobin (12-16) g/dL Ionized Calcium (1.1-1.4) mmol/L O2 Delivery Device O2 Liters/Min % Hides Inspector ID Sodium (136-145) mmol/L Potassium (3.5-5.1) mmol/L Chloride (98-107) mmol/L Carbon Dioxide (22-29) mmol/L Anion Gap (5-19) BUN (8-23) mg/dL Creatinine (0.5-0.9) mg/dL GFR Calculation (90-130) mL/min Glucose (65-115) mg/dL POC Glucose (70-110) mg/dL Calculated Osmolal ity (285-295) mOsm/k g Calcium (8.5-10.5) mg/dL Total Bilirubin (0.15-1.2) mg/dL AST (0-32) U/L ALT (0-33) U/L Alkaline Phosphata se (35-105) IU/L Ammonia (11-51) umol/L Troponin T Baselin e (0-10) ng/L Troponin T 120 Min [place] 11.30 H (0-10) ng/L Delta Troponin T -1.70 L (0-10) ABS# Total Protein (6.6-8.7) g/dL Albumin (3.5-5.2) g/dL Globulin (1.3-4.6) g/dL Urine Color Yellow (Yellow) Urine Appearance Clear (CLEAR) Urine pH 5 (5-7) Ur Specific Gravit y 1.025 (1.005-1.030) Urine Protein Trace (Negative) Urine Glucose (UA) Norm (Normal) Urine Ketones Negative (Negative) Urine Blood Neg (Negative) Urine Nitrate Negative (Negative) Urine Bilirubin Neg (NEGATIVE) Urine Urobilinogen Norm (Negative) mg/dL Ur Leukocyte Candelaria ase Negative (Negative) Urine RBC None (0-2) /hpf Urine WBC None (0-5) /hpf Ur Squamous Epith Cells 5-10 H (0-5) Urine Bacteria Trace (NONE) Salicylates (3-10) mg/dL Urine Opiates Scre en Positive H (Negative) ng/mL Acetaminophen (10-30) ug/mL Ur Barbiturates Sc reen Negative (Negative) ng/mL Ur Phencyclidine S crn Negative (Negative) ng/mL Ur Amphetamines Sc reen Negative (Negative) ng/mL U Benzodiazepines Scrn Negative (Negative) ng/mL Urine Cocaine Scre en Negative (Negative) ng/mL U Marijuana (THC) Screen Negative (Negative) ng/mL Ethyl Alcohol (0-10) mg/dL EKG Data^: EKG 1: Computer generated interpretation: Chest X-Ray 10/16/19 04:46 IMPRESSION: Arteriosclerotic heart disease Chronic interstitial findings. Arteriosclerotic changes. Head CT 10/16/19 04:46 IMPRESSION: 1. Small chronic superior right caudate head lacunar infarction. 2. Bilateral ocular proptosis. 3. Age appropriate mild supratentorial and infratentorial atrophy. 4. 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 5. No acute intracranial abnormality identified. Radiation Dose CTDIVOL = (mGy): DLP = 606.85 (mGy-cm) Humerus X-Ray 10/16/19 04:46 IMPRESSION: Negative right humerus Calcific tendinitis at the shoulder. Shoulder X-Ray 10/16/19 04:46
[2019-10-16 04:57] LABS: Glucose Point of Care 172 mg/dL (70-110)
--- NOTE | 2019-10-16 04:57 | PC.NURSE ---
glucose 172, dr melgar notified
[2019-10-16 05:14] LABS: ABG PH Result 7.25 (7.35-7.45); Alveolar-Arterial Oxygen Gradi 1.8 mmHg (5-10); Arterial Blood Gas Hematocrit 43.7 % (37-47); Blood Gas Allen Test Pos; Blood Gas Sample Site Brachial, right; Blood Gas Sample Type Arterial; Carboxyhemoglobin 1.5 %THgb (0.4-20.1); HCO3 ABG 31.5 mmol/L (22-26); HGB O2 Sat 86.9 % (95-100); Ionized Calcium Level - ABG 1.2 mmol/L (1.1-1.4); Methemoglobin 0.7 % (0.4-1.5); Oxygen Device NC; Oxygen Saturation ABG 88.9; Potassium Level - ABG 4.6 mmol/L (3.5-5.0); Total Hemoglobin 14.3 g/dL (12-16)
[2019-10-16] MEDS: sodium chloride 0.9% 1,000 ML 100 ML IV ×2 (05:14→14:12)
[2019-10-16 05:16] LABS: ABG PCO2 71.6 mmHg (35-45)
[2019-10-16] MEDS: naloxone 0.4 mg/ml SDV IVP ×2 (05:21→05:25)
[2019-10-16 05:31] LABS: Basophils % 0.3 %; Eosinophils # 0.2 10^3/uL (0.0-0.8); Eosinophils % 4.5 %; Hematocrit 44.4 % (37.0-47.0); Hemoglobin 14.4 g/dL (11.5-15.3); Lymphocytes # 0.6 10^3/uL (0.8-4.8); Lymphocytes % 18.4 %; Mean Corpuscular HGB Conc 32.4 g/dL (30.0-36.0); Mean Corpuscular Hemoglobin 29.6 pg (28.0-34.0); Mean Corpuscular Volume 91.2 fL (81-99); Mean Platelet Volume 11.2 fL (7.4-10.4); Monocytes # 0.4 10^3/uL (0.2-0.9); Neutrophils # 2.2 10^3/uL (1.8-7.7); Neutrophils % 65.5 %; Nucleated Red Blood Cells % 0 %; Platelet Count 106 10^3/cmm (130-400); Red Blood Count 4.87 10^6/uL (4.1-5.3); Red Cell Distribution Width 13.2 % (12.1-15.1); White Blood Count 3.4 10^3/uL (4.0-10.0)
[2019-10-16 05:40] LABS: Ammonia 21 umol/L (11-51)
[2019-10-16 05:41] LABS: Troponin(5th) Baseline 13 ng/L (0-10)
[2019-10-16 05:46] LABS: INR 0.86 (0.8-1.2)
[2019-10-16 05:51] LABS: Arterial Blood Gas Hematocrit 43.5 % (37-47); Base Excess ABG 2.3 mmol/L (-2.0-2.0); Blood Gas Allen Test Pos; Blood Gas Sample Site Brachial, right; Blood Gas Sample Type Arterial; HCO3 ABG 30.3 mmol/L (22-26); Oxygen Device NC; PO2 ABG 63.6 mmHg (80.0-100.0)
[2019-10-16 05:55] LABS: ABG PCO2 61.2 mmHg (35-45)
[2019-10-16 06:04] LABS: Alanine Aminotransferase 26 U/L (0-33); Alkaline Phosphatase 61 IU/L (35-105); Anion Gap 16.7 (5-19); Aspartate Amino Transferase 22 U/L (0-32); Blood Urea Nitrogen 14 mg/dL (8-23); Calcium 9.3 mg/dL (8.5-10.5); Carbon Dioxide 27 mmol/L (22-29); Chloride 99 mmol/L (98-107); Glomerular Filtration Rate 82.7 mL/min (90-130); Glucose 190 mg/dL (65-115); Osmolality Calculated 287 mOsm/kg (285-295); Potassium 4.7 mmol/L (3.5-5.1); Sodium 138 mmol/L (136-145); Total Bilirubin 0.5 mg/dL (0.15-1.2)
[2019-10-16 06:13] LABS: Alcohol Level < 10 mg/dL (0-10)
--- NOTE | 2019-10-16 06:25 | PC.NURSE ---
given narcan 0.[address] Kaur orders. Pt now has a Bipap and resting on right lateral side. No acute distress noted.
[2019-10-16 06:30] LABS: Bilirubin Urine Neg (NEGATIVE); Blood Urine Neg (Negative); Glucose Urine UA Norm (Normal); Ketones Urine Negative (Negative); Leukocyte Esterase Urine Negative (Negative); Nitrate Urine Negative (Negative); Protein Urine Trace (Negative); Specific Gravity, Urine 1.025 (1.005-1.030); Urine Appearance Clear (CLEAR); Urine Color Yellow (Yellow); Urobilinogen Urine Norm (Negative); pH Urine 5 (5-7)
[2019-10-16 06:33] LABS: Add Urine Culture? No; Bacteria Urine TRACE
--- NOTE | 2019-10-16 06:47 | ECG_ITS ---
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 Measurements Intervals [place] Rate: 56 P: 48 [place]: 134 QRS: 24 QRSD: 91 T: 68 QT: 411 QTc: 398 Interpretive Statements SINUS BRADYCARDIA Compared to ECG 01/08/2019 21:20:01 Sinus arrhythmia no longer present Electronically Signed On 10-17-2019 14:17:08 CDT by Rina Pérez M.D. [id number]
[2019-10-16 08:11] LABS: Amphetamines Screen Urine Negative (Negative); Barbiturates Screen Urine Negative (Negative); Benzodiazepines Screen Urine Negative (Negative); Cocaine Screen Urine Negative (Negative); Opiate Screen Urine Positive (Negative); PCP Screen Urine Negative (Negative); THC Screen Urine Negative (Negative)
[2019-10-16 08:41] LABS: Acetaminophen < 10.0 ug/mL (10-30)
[2019-10-16 08:43] LABS: Salicylate < 0.3 mg/dL (3-10)
--- NOTE | 2019-10-16 09:36 | P.HP_ITS ---
Providers/Chief Complaint Admitting Physician: Susan Abel DO Primary Care Provider: Curtis Sepulveda Chief Complaint: R HAND/ARM PAIN; R FOOT PAIN; R SIDE PAIN History of Present Illness Myra Mak is a 69 year old female with a past medical history of anxiety, chronic pain on daily opioids, hyperlipidemia, restless leg syndrome, diabetes presented to the emergency department today for altered mental status. She was noted to be lethargic in the emergency department. She reports that due to pain in her right shoulder and hand she took an extra dose of oxycodone yesterday. She stated that since then she had been very lethargic. She also took her home Xanax, Klonopin, pregabalin, tramadol and trazodone. Patient was noted to be hypoxic and hypercapnic with lethargy due to concern for unintentional overdose. She was given Narcan in the ED and showed improvement. She was placed on BiPAP due to hypoxia and hypercapnia, however saturations improved as patient's me ntation improved. Patient is being admitted for observation for further evaluation and treatment. Patient's daughter is at bedside and reports that patient has unintentionally overdosed in the past. Stated that she has been followed by neurosurgery due to chronic back pain. Patient was seen and evaluated in the emergency department due to concern for lethargy due to unintentional opioid overdose and hypoxia related to this she was placed on observation. At time of my exam in the ED patient denies any chest pain or shortness of breath, denies any recent fevers or chills, reports that she has a chronic UTI of which she takes prophylactic antibiotics. Patient denies any recent medication changes. Reported that she follows with her primary care provider closely, states that he is aware of her medications and how she takes them. Patient does report that she is on 3 L of oxygen by nasal cannula at night, not did wear her oxygen last night. She is supposed to have a home CPAP but has been noncompliant with it. Review of Systems Const: Denies: fever(s) or chills Eyes: Denies: change in vision ENMT: Denies: nasal congestion Card: Denies: chest pain, palpitations or edema Resp: Denies: dyspnea, productive cough or hemoptysis GI: Reports: constipation; Denies: abdominal pain, nausea, vomiting, diarrhea, hematochezia or melena : Denies: dysuria or hematuria Musc: Reports: extremity pain and other (Right shoulder and elbow pain); Denies: muscle cramps Skin/Breast: Denies: rash or new lesions Neuro: Denies: headache(s) or dizziness Psych: Reports: other (Increased sleepiness); Denies: anxiety or depression Endo: Denies: polyuria or hot flashes Felix/Lymph: Denies: easy bruising or easy bleeding Medications/Allergies Home Medications Medication Instructions Recorded Confirmed Last Taken Type alprazolam 0.25 mg tablet 0.125 mg PO TID 07/09/19 10/16/19 10/15/19 History atenolol 25 mg tablet 25 mg PO BID 07/09/19 10/16/19 10/15/19 History atorvastatin 40 mg tablet 40 mg PO DAILY 07/09/19 10/16/19 10/15/19 History cholecalciferol (vitamin D3) 1,250 1,250 mcg PO Q7D cap 07/09/19 10/16/19 10/10/19 History mcg (50,000 unit) capsule clonazepam 0.5 mg tablet 0.5 mg PO DAILY 07/09/19 10/16/19 10/15/19 History diclofenac sodium 1 % topical gel 2 gm TOPICAL QID 07/09/19 10/16/19 Unknown History duloxetine 60 mg capsule,delayed 60 mg PO DAILY 07/09/19 10/16/19 10/15/19 History release sprinkle furosemide 40 mg tablet 40 mg PO DAILY 07/09/19 10/16/19 10/15/19 History gemfibrozil 600 mg tablet 600 mg PO BID 07/09/19 10/16/19 10/15/19 History glipizide 5 mg tablet 10 mg PO DAILY tab 07/09/19 10/16/19 10/15/19 History ibuprofen 800 mg tablet 800 mg PO TID PRN 07/09/19 10/16/19 Unknown History insulin detemir U-100 100 unit/mL 50 unit SUBCUT BID 07/09/19 10/16/19 10/15/19 History (3 mL) subcutaneous pen ipratropium 20 mcg-albuterol 100 1 puff INHALATION Q6H PRN 07/09/19 10/16/19 10/15/19 History mcg/actuation mist for inhalation lansoprazole 30 mg capsule,delayed 30 mg PO DAILY 07/09/19 10/16/19 10/15/19 Hi story release nitrofurantoin 100 mg PO DAILY cap 07/09/19 10/16/19 10/15/19 History monohydrate/macrocrystals 100 mg capsule oxycodone-acetaminophen 5 mg-325 1 tab PO BID PRN tab 07/09/19 10/16/19 10/15/19 History mg tablet polyethylene glycol 3350 17 17 gm PO DAILY PRN 07/09/19 10/16/19 Unknown History gram/dose oral powder potassium chloride 20 mEq 20 meq PO DAILY 07/09/19 10/16/19 Unknown History tablet,extended release(part/cryst) pregabalin 225 mg capsule 225 mg PO BID 07/09/19 10/16/19 10/15/19 History ropinirole 1 mg tablet 1 mg PO TID 07/09/19 10/16/19 10/15/19 History sennosides 8.6 mg-docusate sodium 1 tab-cap PO DAILY 07/09/19 10/16/19 10/15/19 History 50 mg tablet timolol 0.5 % eye drops 1 drop OPHTHALMIC (EYE) DAILY 07/09/19 10/16/19 10/15/19 History tramadol 50 mg tablet 50 mg PO Q6H PRN 07/09/19 10/16/19 Unknown History trazodone 100 mg tablet 100 mg PO DAILY 07/09/19 10/16/19 10/15/19 History oxybutynin chloride 5 mg PO DAILY 10/16/19 10/16/19 10/15/19 History tizanidine 2 mg PO TID PRN 10/16/19 10/16/19 Unknown History Allergies Allergy/AdvReac Type Severity Reaction Status Date / Time gabapentin Allergy ADV-Weaknes Verified 08/02/19 10:26 s diazepam [From Valium] AdvReac Mild confusion Verified 08/02/19 10:26 PFSH Acute PFSH: Medical History (Updated 10/16/19 @ 09:44 by Susan Abel DO) CVA (cerebral vascular accident) Displacement of lumbar disc with radiculopathy DM type 2 (diabetes mellitus, type 2) Insulin-dependent High risk medication use Hypertension Neuropathy Neuropathy, peripheral Opioid dependence, daily use Restless leg syndrome Spondylolisthesis, lumbar region Surgical History History of cholecystectomy (~1974) History of knee surgery (~2011) arthroscopic History of laminectomy (10/29/13) Bilateral L4-L5 Laminotomy/Foraminotomy. Dr. Molina History of open reduction and internal fixation (ORIF) procedure Right tib/fib History of tubal ligation Family History Mother Lung disease Sister Diabetes Grandmother Cancer Social History Smoking and tobacco status: former smoker Alcohol intake: current Alcohol intake frequency: holidays/special occasions only Household members: none Marital status: / Current occupational status: disabled History of recent travel: No Vitals/I&O/Wt Last Vital Signs Temp 98.7 F 10/16/19 04:34 Pulse 61 10/16/19 06:23 Resp 20 H 10/16/19 06:23 BP 174/99 10/16/19 06:23 Pulse Ox 100 10/16/19 06:23 Weight last 48 hrs Weight 89.811 kg Physical Exam Const: COMMON NORMALS: patient oriented x3 GENERAL APPEARANCE: cooperative ORIENTATION/CONSCIOUSNESS: Yes oriented to person, Yes oriented to place and Yes oriented to time OTHER: Somewhat lethargic but does answer questions appropriately when waking her up HENMT: COMMON NORMALS: normocephalic and atraumatic HEAD & SCALP: normocephalic and atraumatic Eye: COMMON NORMALS: Equal, round and reactive pupils present GENERAL EYE: exophthalmos PUPIL: Yes Equal, round and reactive pupils present Neck/C-Spine: COMMON NORMALS: supple GENERAL: Yes normal visual inspection Resp: COMMON NORMALS: normal respiratory effort and clear to auscultation bilaterally EFFORT & INSPECTION: Yes able to speak in complete sentences AUSCULTATION: no rhonchi and no wheezes OTHER: Diminished breath sounds but with prolonged expiratory phase, no appreciable wheezing or rhonchi Cardio: COMMON NORMALS: regular rate, regular rhythm and No murmurs present (Cardio) RATE: regular rate RHYTHM: regular rhythm GI: COMMON NORMALS: Soft to palpation and non-tender INSPECTION: No abdominal distension AUSCULTATION: Yes normoactive bowel sounds PALPATION: Yes Soft to palpation OTHER: Soft, obese : COMMON NORMALS: Yes no CVA tenderness BLADDER/KIDNEY EXAM: Yes no CVA tenderness Back/Pelvis: COMMON NORMALS: no CVA tenderness Extremity: COMMON NORMALS: no clubbing, cyanosis or edema and no calf tenderness Neuro: COMMON NORMALS: patient oriented x3, CN's II-XII intact bilaterally, moves all extremities and no focal motor deficits SENSORIUM/ORIENTATION: Yes oriented to person, Yes oriented to place and Yes oriented to time SPEECH: speech normal OTHER: Patient somewhat lethargic, however when waking her up she will answer questions appropriately Psych: COMMON NORMALS: cooperative OTHER: sleepy but wakes up and answers appropriately Skin: COMMON NORMALS: no rashes or lesions noted GENERAL SKIN EXAM: no rashes or lesions noted Data : 10/16/19 05:02 10/16/19 05:02 A&P Assessment and plan (1) Acute encephalopathy: Secondary to unintentional opioid overdose. Patient is on multiple sedating medications including 2 different types of benzodiazepines. Would strongly recommend tapering off of these medications with your primary care provider Patient is on oxycodone-acetaminophen, Xanax, Klonopin, Requip, tizanidine, tramadol, trazodone Will decrease frequency of Xanax and continue to monitor closely due to patient being on multiple sedating medications Patient improved with Narcan administration, will hold off on any further Narcan doses at this time as patient appears to be somewhat improved. Patient denies any suicidal ideation, no homicidal ideation. Patient's daughter at bedside, discussed the recommendation for home health therapy Status: Acute (2) High risk medication use: As noted above patient is on multiple sedating medications and would strongly encourage patient be tapered down by her primary care provider to prevent any future risk of morbidity and mortality Status: Acute (3) Opioid dependence, daily use: As above Status post Narcan in the ED, patient improved, will hold off on any further Narcan at this time as do not wish for patient to go into withdrawal. Status: Acute (4) Restless leg syndrome: Continue home Requip Status: Acute (5) Hypertension: Continue home Lasix and atenolol Status: Acute (6) Neuropathy: Continue home Lyrica Status: Acute (7) DM type 2 (diabetes mellitus, type 2): Patient is insulin-dependent, typically on Levemir 50 units twice daily, will decrease at this time as do not wish for patient to become hypoglycemic. Will place on high-dose sliding scale insulin and slowly titrate up on Levemir as needed Status: Acute Additional A&P Information COPD with acute hypoxic respiratory failure with hypercapnia: Believed to be secondary to unintentional overdose. Placed on BiPAP and admitted to the ICU for close monitoring. Respiratory therapy to assess and treat, oxygen per protocol. Patient is typically on 3 L of oxygen by nasal cannula at baseline at night, no significant wheezing at time of exam Right shoulder pain: Physical therapy and Occupational Therapy ordered for further evaluation and treatment, recommend daily exercise regimen. Appears to have impingement type symptoms, no chest pain or associated shortness of breath. We will continue to monitor on telemetry to ensure no atypical chest pain, serial EKG and troponin. Shoulder x-ray and humeral x-ray performed. Caution with sedating pain medications as above due to unintentional overdose on presentation DVT prophylaxis: Lovenox Diet: Carbohydrate consistent CODE STATUS: Full code, discussed with patient and daughter Attestations Medical Necessity Statement*: Observation due to acute encephalopathy secondary to acute hypoxic and hypercapnic respiratory failure from unintentional opioid overdose. Expected stay less than 2 midnights. Coding Level of Care Code Acute Shipping & Receiving Lead for Hyun Fwd Exam Comprehensive Diagnoses Acute encephalopathy G93.40 High risk medication use Z79.899 Opioid dependence, daily use F11.20 Restless leg syndrome G25.81 Hypertension I10 Neuropathy G62.9 DM type 2 (diabetes mellitus, type 2) E11.9
[2019-10-16 10:21] LABS: Thyroid Stimulating Hormone 1.15 uIU/mL (0.27-4.20)
[2019-10-16] MEDS: sennosides-docusate Tablet 1 TAB PO (10:35)
[2019-10-16] MEDS: atenolol 50 mg Tablet 25 MG PO (10:35)
[2019-10-16] MEDS: duloxetine 60 mg Capsule PO (10:36)
[2019-10-16] MEDS: FUROsemide 40 mg Tablet PO (10:36)
[2019-10-16] MEDS: pantoprazole DR 40 mg Tablet PO (10:36)
[2019-10-16] MEDS: atorvastatin 40 mg Tablet PO (10:36)
[2019-10-16] MEDS: oxybutynin 5 mg Tablet PO (10:36)
[2019-10-16] MEDS: enoxaparin 40 mg/0.4 mL Syringe SUBCUT (10:37)
--- NOTE | 2019-10-16 10:47 | ECG_ITS ---
[facility] Test Date: 2019-10-16 Pat Name: Myra Mak Department: Room: [facility] Gender: 1 Hospital Aide: : 1950 Requested By: Renata Lim Order Number: [id number] Juvenal MD: Rina Pérez M.D. Measurements Intervals [place] Rate: 55 P: 44 OR: 137 QRS: 37 QRSD: 86 T: 67 QT: 407 QTc: 390 Interpretive Statements SINUS BRADYCARDIA Compared to ECG 01/08/2019 21:20:01 Sinus arrhythmia no longer present Electronically Signed On 10-17-2019 14:16:18 CDT by Rina Pérez M.D. [id number]
[2019-10-16 11:24] LABS: Glucose Point of Care 141 mg/dL (70-110)
[2019-10-16 11:25] LABS: Troponin 5 6HR 13.77 ng/L (0-10); Troponin 5 6HR Delta 0.77 ng/L (0-12)
[2019-10-16] MEDS: ipratropium-albuterol 3 mL Neb INHALATION ×4 (11:37→23:31)
[2019-10-16] MEDS: ropinirole 1 mg Tablet PO ×2 (14:12→20:39)
[2019-10-16] MEDS: hyDRALAzine 20 mg/mL INJ 1 mL 10 MG IVP (15:01)
[2019-10-16 16:29] LABS: ABG PCO2 50.8 mmHg (35-45); Arterial Blood Gas Hematocrit 46.1 % (37-47); Base Excess ABG 5.4 mmol/L (-2.0-2.0); Blood Gas Allen Test Pos; Blood Gas Sample Site Brachial, left; Blood Gas Sample Type Arterial; HCO3 ABG 31.6 mmol/L (22-26); Oxygen Device NC; PO2 ABG 77.3 mmHg (80.0-100.0)
[2019-10-16 17:20] LABS: Glucose Point of Care 159 mg/dL (70-110)
[2019-10-16] MEDS: lactulose oral liq 20 gm/30 mL UDC 10 GM PO (17:41)
[2019-10-16] MEDS: timolol 0.5% Op Soln 5 mL Btl 1 DROP EYEAFF (17:42)
[2019-10-16] MEDS: amlodipine 5 mg Tablet PO (17:42)
[2019-10-16] MEDS: pregabalin 75 mg Capsule 225 MG PO (17:47)
--- NOTE | 2019-10-16 18:33 | PC.NURSE ---
TRANSFER TO FLOOR Report called to JENNIFER Calix. Patient transferred to [facility]. All belongings sent with patient.
[2019-10-16] MEDS: oxyCODONE-APAP 5-325 mg Tablet 1 TAB PO (20:39)
[2019-10-16] MEDS: nitrofurantoin SR (BID) 100 mg Capsule PO (20:39)
[2019-10-16] MEDS: trazodone 50 mg Tablet PO (20:39)
[2019-10-16] MEDS: diclofenac 1% Topical Gel 100 gm 1 APPLIC TOPICAL (20:44)
[2019-10-16 22:04] LABS: Glucose Point of Care 215 mg/dL (70-110)
[2019-10-17] VITALS: BP 148/77; PULSE 62; RESP 24; TEMP 37.2; O2SAT 91
[2019-10-17] MEDS: sodium chloride 0.9% 1,000 ML 100 ML IV (00:35)
[2019-10-17 04:00] VITALS: BP 172/95; PULSE 66; RESP 24; TEMP 37; O2SAT 92
[2019-10-17] MEDS: TRAMadol 50 mg Tablet PO (04:11)
[2019-10-17 04:45] VITALS: PULSE 87; RESP 17; O2SAT 92
[2019-10-17] MEDS: ipratropium-albuterol 3 mL Neb INHALATION ×2 (04:45→08:03)
[2019-10-17 05:50] LABS: Basophils % 0.3 %; Eosinophils # 0.1 10^3/uL (0.0-0.8); Eosinophils % 3.4 %; Hemoglobin 14.7 g/dL (11.5-15.3); Lymphocytes # 0.8 10^3/uL (0.8-4.8); Lymphocytes % 22.2 %; Mean Corpuscular HGB Conc 33.4 g/dL (30.0-36.0); Mean Corpuscular Hemoglobin 30.3 pg (28.0-34.0); Mean Corpuscular Volume 90.7 fL (81-99); Mean Platelet Volume 11.4 fL (7.4-10.4); Monocytes # 0.5 10^3/uL (0.2-0.9); Monocytes % 12.6 %; Neutrophils # 2.2 10^3/uL (1.8-7.7); Neutrophils % 60.9 %; Nucleated Red Blood Cells % 0 %; Platelet Count 107 10^3/cmm (130-400); Red Blood Count 4.85 10^6/uL (4.1-5.3); Red Cell Distribution Width 13.2 % (12.1-15.1); White Blood Count 3.6 10^3/uL (4.0-10.0)
[2019-10-17 06:09] LABS: Alanine Aminotransferase 28 U/L (0-33); Albumin Level 3.8 g/dL (3.5-5.2); Alkaline Phosphatase 62 IU/L (35-105); Anion Gap 14.8 (5-19); Aspartate Amino Transferase 23 U/L (0-32); Blood Urea Nitrogen 8 mg/dL (8-23); Calcium 9.4 mg/dL (8.5-10.5); Carbon Dioxide 30 mmol/L (22-29); Chloride 96 mmol/L (98-107); Globulin 3.4 g/dL (1.3-4.6); Glomerular Filtration Rate 98.8 mL/min (90-130); Glucose 150 mg/dL (65-115); Osmolality Calculated 283 mOsm/kg (285-295); Potassium 3.8 mmol/L (3.5-5.1); Sodium 137 mmol/L (136-145); Total Bilirubin 0.6 mg/dL (0.15-1.2); Total Protein 7.2 g/dL (6.6-8.7)
[2019-10-17 06:41] LABS: Glucose Point of Care 129 mg/dL (70-110)
[2019-10-17 07:20] VITALS: BP 174/83; PULSE 72; RESP 18; TEMP 36.9; O2SAT 93
[2019-10-17] MEDS: diclofenac 1% Topical Gel 100 gm 1 APPLIC TOPICAL (07:45)
[2019-10-17 08:02] VITALS: PULSE 76; RESP 18; O2SAT 94
--- NOTE | 2019-10-17 08:38 | PC.OT ---
OT EVALUATION ATTEMPTED. PATIENT EATING BREAKFAST AND REQUESTS THAT WE RETURN LATER.
[2019-10-17] MEDS: amlodipine 5 mg Tablet PO (08:41)
[2019-10-17] MEDS: atenolol 50 mg Tablet 25 MG PO (08:41)
[2019-10-17] MEDS: potassium chloride ER 10 mEq Tablet 20 MEQ PO (08:42)
[2019-10-17] MEDS: pregabalin 75 mg Capsule 225 MG PO (08:42)
[2019-10-17] MEDS: oxybutynin 5 mg Tablet PO (08:42)
[2019-10-17] MEDS: pantoprazole DR 40 mg Tablet PO (08:42)
[2019-10-17] MEDS: FUROsemide 40 mg Tablet PO (08:42)
[2019-10-17] MEDS: atorvastatin 40 mg Tablet PO (08:42)
[2019-10-17] MEDS: duloxetine 60 mg Capsule PO (08:42)
[2019-10-17] MEDS: ropinirole 1 mg Tablet PO (08:42)
[2019-10-17] MEDS: timolol 0.5% Op Soln 5 mL Btl 1 DROP EYEAFF (08:43)
[2019-10-17] MEDS: sennosides-docusate Tablet 1 TAB PO (08:43)
[2019-10-17] MEDS: enoxaparin 40 mg/0.4 mL Syringe SUBCUT (08:43)
--- NOTE | 2019-10-17 09:01 | PM.DCS ---
Discharge Providers Date of Admission: 10/16/19 08:04 Date of Discharge: October 17, 2019 Attending Provider at Admission: Susan Abel DO Attending Provider at Discharge: Susan Abel DO Primary Care Provider: Curtis Sepulveda Diagnoses at Discharge Discharge Diagnosis (1) Acute encephalopathy: Status: Acute (2) High risk medication use: Status: Acute (3) Opioid dependence, daily use: Status: Acute (4) Restless leg syndrome: Status: Acute (5) Hypertension: Status: Acute (6) Neuropathy: Status: Acute (7) DM type 2 (diabetes mellitus, type 2): Status: Acute Problem details: Insulin-dependent Reason for Visit Reason for Visit: R HAND/ARM PAIN; R FOOT PAIN; R SIDE PAIN Hospital Course Hospital Course: Patient was seen and evaluated in the emergency department noted to have altered mental status and lethargy with concern for unintentional narcotic overdose. Patient was given 1 dose of Narcan and had significant improvement. This was noted to be hypoxic and hypercapnic therefore BiPAP was in place. Patient remained somewhat lethargic, however no further doses of Narcan were administered as did not wish for patient to go through any sort of narcotic withdrawal. Patient was initially admitted to the ICU for close monitoring, ABGs continued to improve and patient was titrated off to room air. Physical therapy and Occupational Therapy were ordered due to patient reporting increased falls at home and off balance. She had imaging performed of her right shoulder due to concern for increasing shoulder pain over the past couple of weeks. No fracture dislocation noted, on exam patient was noted to have some concern for arthritis and potentially shoulder impingement syndrome, decreased range of motion was noted and physical therapy worked with patient to address this. Due to her concerns home health was recommended, patient and her daughter agreed, patient was set up for home lighting adviser, home RN and physical therapy as well as occupational therapy to increase ambulation and work on mobility and balance. Patient was noted to be hypertensive therefore amlodipine was started at 5 mg daily, blood pressure improved. Patient was noted to be bradycardic, she reported that her atenolol was recently increased to twice daily, it was decreased back to once daily dosing and heart rate improved. Patient was much improved on date of discharge denied any chest pain or shortness of breath and was much more alert. Discussed with patient the significance concern for her medications putting her at an increased risk of morbidity and mortality and recommended she discuss further with her primary care provider to slowly taper off of her sedating medications. Patient reported that she is discussed this with her primary care provider in the past, she verbalized understanding. Also discussed with patient the recommendation for repeat sleep study and pulmonary function testing and would strongly encourage compliance with CPAP at home as this will help with her daytime somnolence and hypertension. Called and discussed with patient's daughter, Idania, on date of discharge and made her aware of patients condition and improvement, but also the need for outpatient follow up and recommendations that were discussed. She verbalized understanding and agreed with plan. Physical Exam Const: COMMON NORMALS: patient oriented x3 and alert GENERAL APPEARANCE: cooperative ORIENTATION/CONSCIOUSNESS: Yes awake, Yes oriented to person, Yes oriented to place and Yes oriented to time HENMT: COMMON NORMALS: normocephalic and atraumatic HEAD & SCALP: normocephalic and atraumatic Eye: COMMON NORMALS: Equal, round and reactive pupils present GENERAL EYE: exophthalmos PUPIL: Yes Equal, round and reactive pupils present Neck/C-Spine: COMMON NORMALS: supple GENERAL: Yes normal visual inspection Resp: COMMON NORMALS: normal respiratory effort and clear to auscultation bilaterally EFFORT & INSPECTION: Yes able to speak in complete sentences AUSCULTATION: clear to auscultation bilaterally, no rhonchi and no wheezes Cardio: COMMON NORMALS: regular rate, regular rhythm and No murmurs present (Cardio) RATE: regular rate RHYTHM: regular rhythm GI: COMMON NORMALS: Soft to palpation and non-tender INSPECTION: No abdominal distension AUSCULTATION: Yes normoactive bowel sounds PALPATION: Yes Soft to palpation OTHER: obese Extremity: COMMON NORMALS: no clubbing, cyanosis or edema and no calf tenderness Neuro: COMMON NORMALS: patient oriented x3, CN's II-XII intact bilaterally, moves all extremities and no focal motor deficits SENSORIUM/ORIENTATION: Yes alert, Yes oriented to person, Yes oriented to place and Yes oriented to time SPEECH: speech normal Psych: COMMON NORMALS: mental status grossly normal and cooperative Skin: COMMON NORMALS: no rashes or lesions noted GENERAL SKIN EXAM: no rashes or lesions noted Discharge Data Data Completed and Pending: Completed Studies During Hospitalization Category Date Time Status CT head wo con* 7 0450 Stat Cat Scan 06/16/20 04:46 Completed XR chest 1V kaley ble [id number] Stat Exams 10/16/19 04:46 Completed XR humerus RT 730 60 Stat Exams 10/16/19 04:46 Completed XR shoulder RT mi n 2V* [id number] Stat Exams 10/16/19 04:46 Completed Labs from last 24 hours 10/17/19 10/17/19 10/17/19 06:30 05:08 05:08 WBC 3.6 L RBC 4.85 Hgb 14.7 Hct 44.0 MCV 90.7 MCH 30.3 MCHC 33.4 RDW 13.2 Plt Count 107 L MPV 11.4 H Neut % (Auto) 60.9 Lymph % (Auto) 22.2 Prentiss % (Auto) 12.6 Eos % (Auto) 3.4 Baso % (Auto) 0.3 Neut # (Auto) 2.2 Lymph # (Auto) 0.8 Prentiss # (Auto) 0.5 Eos # (Auto) 0.1 Baso # (Auto) 0.0 Nucleated RBC % (a uto) 0 Nucleated RBCs # 0.0 Specimen Type Sample Site ABG pH ABG pCO2 ABG pO2 ABG HCO3 ABG Base Excess Trever Test Hematocrit O2 Delivery Device FiO2 Tab Machine Operator ID Sodium 137 Potassium 3.8 Chloride 96 L Carbon Dioxide 30 H Anion Gap 14.8 BUN 8 Creatinine 0.6 GFR Calculation 98.8 Glucose 150 H POC Glucose 129 Calculated Osmolal ity 283 L Calcium 9.4 Total Bilirubin 0.6 AST 23 ALT 28 Alkaline Phosphata se 62 Troponin I 6 Hour Troponin I Hi Sens Del Total Protein 7.2 Albumin 3.8 Globulin 3.4 TSH 10/16/19 10/16/19 10/16/19 19:47 17:09 16:17 WBC RBC Hgb Hct MCV MCH MCHC RDW Plt Count MPV Neut % (Auto) Lymph % (Auto) [place] % (Auto) Eos % (Auto) Baso % (Auto) Neut # (Auto) Lymph # (Auto) Prentiss # (Auto) Eos # (Auto) Baso # (Auto) Nucleated RBC % (a uto) Nucleated RBCs # Specimen Type Arterial Sample Site Brachial, left ABG pH 7.40 ABG pCO2 50.8 H ABG pO2 77.3 L ABG HCO3 31.6 H ABG Base Excess 5.4 H Trever Test Pos Hematocrit 46.1 O2 Delivery Device Nc FiO2 28.0 Tab Machine Operator ID cak Sodium Potassium Chloride Carbon Dioxide Anion Gap BUN Creatinine GFR Calculation Glucose POC Glucose 215 159 Calculated Osmolal ity Calcium Total Bilirubin AST ALT Alkaline Phosphata se Troponin I 6 Hour Troponin I Hi Sens Del Total Protein Albumin Globulin TSH 10/16/19 10/16/19 10/16/19 11:05 10:34 05:02 WBC RBC Hgb Hct MCV MCH MCHC RDW Plt Count MPV Neut % (Auto) Lymph % (Auto) P[place]iss % (Auto) Eos % (Auto) Baso % (Auto) Neut # (Auto) Lymph # (Auto) Prentiss # (Auto) Eos # (Auto) Baso # (Auto) Nucleated RBC % (a uto) Nucleated RBCs # Specimen Type Sample Site ABG pH ABG pCO2 ABG pO2 ABG HCO3 ABG Base Excess Trever Test Hematocrit O2 Delivery Device FiO2 Tab Machine Operator ID Sodium Potassium Chloride Carbon Dioxide Anion Gap BUN Creatinine GFR Calculation Glucose POC Glucose 141 Calculated Osmolal ity Calcium Total Bilirubin AST ALT Alkaline Phosphata se Troponin I 6 Hour 13.77 H Troponin I Hi Sens Del 0.77 Total Protein Albumin Globulin TSH 1.15 Vitals: Last Vital Signs Temp 98.4 F 10/17/19 07:20 Pulse 76 10/17/19 08:02 Resp 18 10/17/19 08:02 BP 174/83 10/17/19 07:20 Pulse Ox 94 10/17/19 08:02 Discharge Plan Discharge Patient Disposition: Home Health Service Condition: Stable Prescriptions: New clonazepam 0.5 mg Tablet 0.5 mg PO PRN PRN (Reason: Anxiety) 30 Days RF: 0 tramadol 50 mg Tablet 50 mg PO Q12H PRN (Reason: Pain) 30 Days RF: 0 alprazolam 0.25 mg Tablet 0.125 mg PO Q12H PRN (Reason: Anxiety) Qty: 0 RF: 0 atenolol 50 mg Tablet 25 mg PO DAILY 30 Days Qty: 30 RF: 0 amlodipine 5 mg Tablet 5 mg PO DAILY 30 Days Qty: 30 RF: 0 Continued oxycodone-acetaminophen [Percocet] 5-325 mg tablet 1 tab PO BID PRN (Reason: Pain) RF: 0 ibuprofen 800 mg tablet 800 mg PO TID PRN (Reason: Pain) RF: 0 pregabalin [Lyrica] 225 mg capsule 225 mg PO BID RF: 0 atorvastatin 40 mg tablet 40 mg PO DAILY RF: 0 insulin detemir U-100 100 unit/mL (3 mL) insulin pen 50 unit SUBCUT BID RF: 0 glipizide 5 mg tablet 10 mg PO DAILY RF: 0 nitrofurantoin monohyd/m-cryst [Macrobid] 100 mg capsule 100 mg PO DAILY RF: 0 gemfibrozil 600 mg tablet 600 mg PO BID RF: 0 diclofenac sodium [Voltaren] 1 % gel 2 gm TOPICAL QID RF: 0 ropinirole 1 mg tablet 1 mg PO TID RF: 0 duloxetine 60 mg capsule, delayed rel sprinkle 60 mg PO DAILY RF: 0 potassium chloride [Klor-Con M20] 20 mEq tablet,ER particles/crystals 20 meq PO DAILY RF: 0 Combivent Respimat 20-100 mcg/actuation mist 1 puff INHALATION Q6H PRN (Reason: Shortness Of Breath) RF: 0 trazodone 100 mg tablet 100 mg PO DAILY RF: 0 furosemide 40 mg tablet 40 mg PO DAILY RF: 0 polyethylene glycol 3350 [Miralax] 17 gram/dose powder 17 gm PO DAILY PRN (Reason: Constipation) RF: 0 timolol 0.5 % drops 1 drop ophthalmic (eye) DAILY RF: 0 sennosides-docusate sodium [Senna with Docusate Sodium] 8.6-50 mg tablet 1 tab-cap PO DAILY RF: 0 lansoprazole 30 mg capsule,delayed release(DR/EC) 30 mg PO DAILY RF: 0 cholecalciferol (vitamin D3) 1,250 mcg (50,000 unit) capsule 1,250 mcg PO Q7D RF: 0 oxybutynin chloride 5 mg Tablet 5 mg PO DAILY RF: 0 tizanidine 2 mg Capsule 2 mg PO TID PRN (Reason: Muscle Pain) RF: 0 Discontinued tramadol 50 mg tablet 50 mg PO Q6H PRN (Reason: Pain) RF: 0 alprazolam 0.25 mg tablet 0.125 mg PO TID RF: 0 clonazepam [Klonopin] 0.5 mg tablet 0.5 mg PO DAILY RF: 0 atenolol 25 mg tablet 25 mg PO BID RF: 0 Discharge Orders: Discharge Order (Routine); Ordered 10/17/19 Ordered By: Susan Abel Other Ambulatory Orders: Sleep Study/Titration (Routine) Timeframe: 2 Weeks Location: None Selected Ordered By: Susan Abel Referrals: Curtis Sepulveda [Primary Care Provider] - 1-3 days Discharge Diet: Diabetic Discharge Activity: Increase activity as tolerated, As per PT/OT instructions, Oxygen as instructed and Cpap/Bipap as instructed Activity Restrictions/Additional Instructions: You were admitted to the hospital due to concern for increased lethargy, sleepiness, due to concern for unintentional opioid overdose. Would strongly recommend discussing with your primary care provider to gradually taper off of some of your sedating and narcotic medications. Would recommend decreasing Xanax to twice daily as needed use. Would recommend decreasing tramadol to every 12 hour as needed use for pain. And would recommend further titration down in accordance to and under guidance from your primary care provider. Set up with home health services, nurse, aide, physical therapy and Occupational Therapy. Continue with exercises as prescribed even when they are not in your home to increase your ambulation and balance. Your atenolol was decreased from 25 mg twice daily to only once daily due to slow heart rate. Your blood pressure was elevated therefore you were started on a medication called amlodipine, this is 5 mg daily. Follow-up with your primary care provider in 1 to 3 days for close follow-up and monitoring Follow-up with your other specialty providers as previously scheduled Call your physician or present to the ED for any acute illness or concern Discharge Attestations Time Spent in Discharge Care*: greater than 30 min Specific Discharge Activities: Specific discharge activities: educating patient, educating and/or supporting family/caregiver and discussing with protective services case worker/social workers/dc planners Quality Metrics Clinical Quality Measures During this hospital stay, did patient experience: None Coding Level of Care Code Acute Sourcing Intern for Chg Fwd Exam Comprehensive Diagnoses Acute encephalopathy G93.40 High risk medication use Z79.899 Opioid dependence, daily use F11.20 Restless leg syndrome G25.81 Hypertension I10 Neuropathy G62.9 DM type 2 (diabetes mellitus, type 2) E11.9
--- NOTE | 2019-10-17 09:28 | PC.CHAP ---
Pastoral Care Encounter/Spiritual Assessment Type of Contact [] Declined pulling unit operator visit [] Patient/Family/Request visit [] Outpatient visit [] Follow-up visit [] Physician referral [] Code/Alert [x] Routine visit [] Staff referral [] Actively dying [] Patient sleeping [] Family support [] [] Out of room [] Palliative care [] [x] Receiving care in room [] Pre-surgical visit [] Trauma [] Long length of stay [] ICU visit [] Other: Relational/Emotional Strength [] Patient feels connected with others/family/visitors/staff [] Distress [] Loneliness/isolation [] Abandonment Spirituality of Patient [] Person of Carlene [] Attends Roman Catholic of their Carlene [] Believes in Prayer [] Reads Bible or Roman Catholic materials [] There are Spiritual issues to be addressed Food And Nutrition Professor Interventions [] Prayer [] Active listening [] Non-anxious presence [] Spiritual/emotional support [] Crisis/trauma care [] Spiritual counseling [] Bereavement support [] Provided bereavement packet [] Provided Bible/devotional materials [] Provided toy/stuffed animal, coloring book to patient or family member [] Provided Communion [] Anointing/[place] [] Salvation [x] Completed spiritual assessment [] Other: Impact on Illness or Injury [] Angry [] Fearful [] Anxious [] Often cries [] Exhaustion [] Unable to work [] Unable to attend catholic [] Unable to walk/stand [] Unable to read [] Unable to drive [] Unable to eat/drink [] Unable to sleep [] Unable to be with family [] Patient intubated [] Other: Summary Time spent with patient
[2019-10-17 11:06] VITALS: BP 154/86; PULSE 74; RESP 16; TEMP 36.9; O2SAT 94
--- NOTE | 2019-10-17 11:07 | PC.NURSE ---
DISCHARGE - D/C INSTRUCTIONS GIVEN AND DISCUSSED WITH PATIENT. PATIENT VOICED UNDERSTANDING. IV REMOVED AND INTACT. AWAITING DAUGHTER FOR PATIENTS RIDE HOME. FINESSE, SPECIALTY COOK
--- NOTE | 2019-10-17 12:19 | PC.OT ---
OT orders received. Patient discharged from hospital prior to being seen for OT evaluation. No OT services received.
== END 2019-10-17 11:38 | disposition home health service (06) ==
LOC: ER 06:59 → ICU 08:22 → MEDSURG 18:26
PROVIDERS: Emergency Medicine; Family Medicine; Admitting Provider Family Medicine; PCP Family Medicine; Visit Provider Family Medicine
DX: G93.40 Encephalopathy, unspecified (principal); Z79.899 Other long term (current) drug therapy; F11.20 Opioid dependence, uncomplicated; G25.81 Restless legs syndrome; I10 Essential (primary) hypertension; G62.9 Polyneuropathy, unspecified; J44.9 Chronic obstructive pulmonary disease, unspecified; J96.01 Acute respiratory failure with hypoxia; M25.511 Pain in right shoulder; E78.5 Hyperlipidemia, unspecified; Z86.73 Personal history of transient ischemic attack (TIA), and cerebral infarction without residual deficits; E11.40 Type 2 diabetes mellitus with diabetic neuropathy, unspecified; Z87.891 Personal history of nicotine dependence
CPT/HCPCS: 12345; 36415; 36416; 36600; 70450; 71045; 73030; 73060; 80051; 80053; 80306; 80307; 81001; 82140; 82803; 82810; 82962; 83986; 84443; 84484; 85025; 85610; 93005; 94640; 94660; 94664; 96361; 96372; 96374; 96375; 97116; 97161; 97530; 99284; 99291; G0378; J0360; J1650; J1815; J2310; J7030

== ENCOUNTER 2020-05-14 07:58 | Emergency (ER) | payer MEDICARE, MEDICAID, SELFPAY ==
--- NOTE | 2020-05-14 08:10 | XR_ITS ---
WS: [id number] Portable AP upright chest, 05/14/2020 Clinical Data: dyspnea Comparison: Portable chest, 10/16/2019. Findings: No nodules, masses or effusions are seen. The heart is large. The pulmonary vascularity is not increased. No pneumonia or pneumothorax is seen. The aortic arch and descending aorta show calcif ication and tortuosity. XR/XR chest 1V portable [id number] Impression: Cardiomegaly and atherosclerosis.
--- NOTE | 2020-05-14 08:11 | ECG_ITS ---
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 Measurements Intervals [place] Rate: 93 P: 47 AK: 126 QRS: 21 QRSD: 81 T: 111 QT: 320 QTc: 399 Interpretive Statements SINUS RHYTHM ST DEVIATION AND MODERATE T-WAVE ABNORMALITY, CONSIDER LATERAL ISCHEMIA [-0.1+ mV T WAVE IN I/aVL/V5/V6] Compared to ECG 10/16/2019 13:15:03 T-wave abnormality now present Possible ischemia now present Sinus bradycardia no longer present Electronically Signed On 05-14-2020 19:19:08 PLUMBING TECHNICIAN by Rina Pérez M.D. [id number]
[2020-05-14 08:28] VITALS: BP 118/97; PULSE 94; RESP 20; O2SAT 93; BMI 36.6
[2020-05-14 08:30] VITALS: O2SAT 93
[2020-05-14 08:31] LABS: ABG PH Result 7.45 (7.35-7.45); Arterial Blood Gas Hematocrit 47.9 % (37-47); Base Excess ABG 3.9 mmol/L (-2.0-2.0); Blood Gas Sample Type Arterial; HCO3 ABG 28.3 mmol/L (22-26); PO2 ABG 64.1 mmHg (80.0-100.0)
[2020-05-14 08:32] LABS: Blood Gas Operator Identificat GD; Blood Gas Sample Site Brachial, left; Oxygen Device ROOM AIR
[2020-05-14 09:04] LABS: Basophils % 0.2 %; Eosinophils # 0.1 10^3/uL (0.0-0.8); Eosinophils % 1.9 %; Hematocrit 45.9 % (37.0-47.0); Lymphocytes # 0.7 10^3/uL (0.8-4.8); Lymphocytes % 15.1 %; Mean Corpuscular HGB Conc 32.7 g/dL (30.0-36.0); Mean Corpuscular Hemoglobin 28.9 pg (28.0-34.0); Mean Corpuscular Volume 88.4 fL (81-99); Mean Platelet Volume 11.8 fL (7.4-10.4); Monocytes # 0.5 10^3/uL (0.2-0.9); Monocytes % 11.4 %; Neutrophils # 3.05 10^3/uL (1.8-7.7); Neutrophils % 70.9 %; Nucleated Red Blood Cells % 0 %; Platelet Count 149 10^3/cmm (130-400); Red Blood Count 5.19 10^6/uL (4.1-5.3); Red Cell Distribution Width 13.1 % (12.1-15.1); White Blood Count 4.3 10^3/uL (4.0-10.0)
--- NOTE | 2020-05-14 09:11 | ED_ITS ---
HPI - COVID General: Chief Complaint: COVID symptoms Stated Complaint: covid+, confusion, loss of appetite Time Seen by Provider: 05/14/20 08:08 Triage information: Has fever, cough or shortness of breath . Exposure to COVID + person last 14 days History of Present Illness: HPI Narrative: 69-year-old female presents the emergency room with confusion and difficulty breathing diarrhea. Her oxygen saturations are in the low 90s in the exam room. She denies any head trauma she is not on any anticoagulants. She was started on prednisone 60 mg daily for 9 days. She tested positive for Covid on May 06, 2020. MD complaint: known COVID positive Prior covid testing: yes, results known Prior testing date: 05/06/20 COVID 19 common symptoms: positive fever(s), chills, cough, non-productive cough, dyspnea, fatigue, body aches, nasal congestion and diarrhea COVID 19 other sytmptoms: positive requiring oxygen; negative chest pain or respiratory distress Onset (ago): day(s) (-) Severity: mild Pertinent comorbid conditions: diabetes COVID Results: No Data to Display Review of Systems Const: Reports: fever(s), body aches and fatigue ENMT: Reports: nasal congestion Card: Reports: dyspnea on exertion; Denies: chest pain, edema or orthopnea Resp: Reports: dyspnea and non-productive cough GI: Reports: diarrhea : Denies: flank pain, difficulty voiding, dysuria, urinary frequency or urinary urgency Skin/Breast: Denies: rash or pruritus PFS ED PFSH: Medical History CVA (cerebral vascular accident) Displacement of lumbar disc with radiculopathy DM type 2 (diabetes mellitus, type 2) Insulin-dependent High risk medication use Hypertension Neuropathy Neuropathy, peripheral Opioid dependence, daily use Restless leg syndrome Spondylolisthesis, lumbar region Surgical History History of cholecystectomy (~1974) History of knee surgery (~2011) arthroscopic History of laminectomy (10/29/13) Bilateral L4-L5 Laminotomy/Foraminotomy. Dr. Molina History of open reduction and internal fixation (ORIF) procedure Right tib/fib History of tubal ligation Family History Mother Lung disease Sister Diabetes Grandmother Cancer Social History Smoking and tobacco status: former smoker Alcohol intake: current Alcohol intake frequency: holidays/special occasions only Household members: none Marital status: / Current occupational status: disabled History of recent travel: No Physical Exam Const: COMMON NORMALS: no acute distress GENERAL APPEARANCE: cooperative and comfortable ORIENTATION/CONSCIOUSNESS: Yes awake, Yes oriented to person, Yes oriented to place and Yes oriented to time HENMT: COMMON NORMALS: normocephalic, atraumatic and hearing grossly normal bilaterally HEAD & SCALP: normocephalic and atraumatic Eye: COMMON NORMALS: Equal, round and reactive pupils present, EOMs intact bilaterally, conjunctivae normal and no scleral icterus CONJUNCTIVA: Yes conjunctivae normal PUPIL: Yes Equal, round and reactive pupils present Neck/C-Spine: COMMON NORMALS: full ROM, no lymphadenopathy, supple and no JVD Lymph: LYMPHATIC: no lymphadenopathy noted and no lymphedema noted Resp: COMMON NORMALS: normal respiratory effort, No retractions, No use of accessory muscles and clear to auscultation bilaterally AUSCULTATION: clear to auscultation bilaterally Cardio: COMMON NORMALS: no JVD, regular rate, regular rhythm and No murmurs present (Cardio) RATE: regular rate RHYTHM: regular rhythm GI: COMMON NORMALS: Soft to palpation and No hepatosplenomegaly present AUSCULTATION: Yes normoactive bowel sounds PALPATION: Yes Soft to palpation, No Tenderness to palpation present (GI), No Guarding due to palpation present (GI) and Yes No hepatosplenomegaly present Extremity: COMMON NORMALS: normal to inspection, capillary refill normal, no clubbing, cyanosis or edema, no calf tenderness and no pedal edema Neuro: SENSORIUM/ORIENTATION: Yes oriented to person, Yes oriented to place and Yes oriented to time Skin: COMMON NORMALS: no rashes or lesions noted GENERAL SKIN EXAM: no rashes or lesions noted Course Vital Signs: Vital signs: Vital Signs Pulse Rate 95 05/14/20 12:57 Respiratory Rate 20 H 05/14/20 08:28 Blood Pressure 140/80 05/14/20 12:57 Pulse Oximetry 90 05/14/20 12:57 MDM - COVID MDM Narrative: Medical decision making narrative: After IV fluids patient is doing better. Organ to go ahead and discharge her home with albuterol and dexamethasone. She is awake and alert answers questions appropriately. We will discharge her home on home oxygen monitor oxygen sats at home if any worsening or change return monitor blood sugars closely as well as dexamethasone will affect her blood sugars any worsening return to the emergency room immediately Lab Data: Labs: Lab Results 05/14/20 05/14/20 05/14/20 Range/Units 08:15 08:39 08:39 WBC 4.3 (4.0-10.0) 10^3/ uL RBC 5.19 (4.1-5.3) 10^6/u L Hgb 15.0 (11.5-15.3) g/dL Hct 45.9 (37.0-47.0) % MCV 88.4 (81-99) fL MCH 28.9 (28.0-34.0) pg MCHC 32.7 (30.0-36.0) g/dL RDW 13.1 (12.1-15.1) % Plt Count 149 (130-400) 10^3/c mm MPV 11.8 H (7.4-10.4) fL Neut % (Auto) 70.9 % Lymph % (Auto) 15.1 % [place] % (Auto) 11.4 % Eos % (Auto) 1.9 % Baso % (Auto) 0.2 % Neut # (Auto) 3.05 (1.8-7.7) 10^3/u L Lymph # (Auto) 0.7 L (0.8-4.8) 10^3/u L [place] # (Auto) 0.5 (0.2-0.9) 10^3/u L Eos # (Auto) 0.1 (0.0-0.8) 10^3/u L Baso # (Auto) 0.0 (0.0-0.1) 10^3/u L Nucleated RBC % (a uto) 0 % Nucleated RBCs # 0.0 /100WBC D-Dimer 0.68 H (0-0.59) ug/mIFE U Specimen Type Arterial Sample Site Brachial, left ABG pH 7.45 (7.35-7.45) ABG pCO2 41.0 (35-45) mmHg ABG pO2 64.1 L (80.0-100.0) mmH g ABG HCO3 28.3 H (22-26) mmol/L ABG Base Excess 3.9 H (-2.0-2.0) mmol/ L Trever Test N/a Hematocrit 47.9 H (37-47) % O2 Delivery Device Room air Dock Coordinator ID Gd Sodium (136-145) mmol/L Potassium (3.5-5.1) mmol/L Chloride (98-107) mmol/L Carbon Dioxide (22-29) mmol/L Anion Gap (5-19) BUN (8-23) mg/dL Creatinine (0.5-0.9) mg/dL GFR Calculation (90-130) mL/min Glucose (65-115) mg/dL Calculated Osmolal ity (285-295) mOsm/k g Lactic Acid Calcium (8.5-10.5) mg/dL Total Bilirubin (0.15-1.2) mg/dL AST (0-32) U/L ALT (0-33) U/L Alkaline Phosphata se (35-105) IU/L Creatine Kinase (26-192) U/L Troponin T Baselin e (0-10) ng/L Troponin T 120 Min [place] (0-10) ng/L Delta Troponin T (0-10) ABS# C-Reactive Protein (0.0-4.9) mg/L Total Protein (6.6-8.7) g/dL Albumin (3.5-5.2) g/dL Globulin (1.3-4.6) g/dL 05/14/20 05/14/20 05/14/20 Range/Units 08:39 08:39 08:39 WBC (4.0-10.0) 10^3/ uL RBC (4.1-5.3) 10^6/u L Hgb (11.5-15.3) g/dL Hct (37.0-47.0) % MCV (81-99) fL MCH (28.0-34.0) pg MCHC (30.0-36.0) g/dL RDW (12.1-15.1) % Plt Count (130-400) 10^3/c mm MPV (7.4-10.4) fL Neut % (Auto) % Lymph % (Auto) % [place] % (Auto) % Eos % (Auto) % Baso % (Auto) % Neut # (Auto) (1.8-7.7) 10^3/u L Lymph # (Auto) (0.8-4.8) 10^3/u L [place] # (Auto) (0.2-0.9) 10^3/u L Eos # (Auto) (0.0-0.8) 10^3/u L Baso # (Auto) (0.0-0.1) 10^3/u L Nucleated RBC % (a uto) % Nucleated RBCs # /100WBC D-Dimer (0-0.59) ug/mIFE U Specimen Type Sample Site ABG pH (7.35-7.45) ABG pCO2 (35-45) mmHg ABG pO2 (80.0-100.0) mmH g ABG HCO3 (22-26) mmol/L ABG Base Excess (-2.0-2.0) mmol/ L Trever Test Hematocrit (37-47) % O2 Delivery Device Dock Coordinator ID Sodium 137 (136-145) mmol/L Potassium 4.2 (3.5-5.1) mmol/L Chloride 99 (98-107) mmol/L Carbon Dioxide 30 H (22-29) mmol/L Anion Gap 12.2 (5-19) BUN 9 (8-23) mg/dL Creatinine 0.7 (0.5-0.9) mg/dL GFR Calculation 82.7 L (90-130) mL/min Glucose 182 H (65-115) mg/dL Calculated Osmolal ity 287 (285-295) mOsm/k g Lactic Acid Cancelled Calcium 9.3 (8.5-10.5) mg/dL Total Bilirubin 0.8 (0.15-1.2) mg/dL AST 36 H (0-32) U/L ALT 35 H (0-33) U/L Alkaline Phosphata se 56 (35-105) IU/L Creatine Kinase 27 (26-192) U/L Troponin T Baselin e 18 H (0-10) ng/L Troponin T 120 Min [place] (0-10) ng/L Delta Troponin T (0-10) ABS# C-Reactive Protein 67.9 H (0.0-4.9) mg/L Total Protein 6.7 (6.6-8.7) g/dL Albumin 3.7 (3.5-5.2) g/dL Globulin 3.0 (1.3-4.6) g/dL 05/14/20 05/14/20 Range/Units 10:50 10:50 WBC (4.0-10.0) 10^3/ uL RBC (4.1-5.3) 10^6/u L Hgb (11.5-15.3) g/dL Hct (37.0-47.0) % MCV (81-99) fL MCH (28.0-34.0) pg MCHC (30.0-36.0) g/dL RDW (12.1-15.1) % Plt Count (130-400) 10^3/c mm MPV (7.4-10.4) fL Neut % (Auto) % Lymph % (Auto) % [place] % (Auto) % Eos % (Auto) % Baso % (Auto) % Neut # (Auto) (1.8-7.7) 10^3/u L Lymph # (Auto) (0.8-4.8) 10^3/u L [place] # (Auto) (0.2-0.9) 10^3/u L Eos # (Auto) (0.0-0.8) 10^3/u L Baso # (Auto) (0.0-0.1) 10^3/u L Nucleated RBC % (a uto) % Nucleated RBCs # /100WBC D-Dimer (0-0.59) ug/mIFE U Specimen Type Sample Site ABG pH (7.35-7.45) ABG pCO2 (35-45) mmHg ABG pO2 (80.0-100.0) mmH g ABG HCO3 (22-26) mmol/L ABG Base Excess (-2.0-2.0) mmol/ L [place] Test Hematocrit (37-47) % O2 Delivery Device Dock Coordinator ID Sodium (136-145) mmol/L Potassium (3.5-5.1) mmol/L Chloride (98-107) mmol/L Carbon Dioxide (22-29) mmol/L Anion Gap (5-19) BUN (8-23) mg/dL Creatinine (0.5-0.9) mg/dL GFR Calculation (90-130) mL/min Glucose (65-115) mg/dL Calculated Osmolal ity (285-295) mOsm/k g Lactic Acid 0.9 Calcium (8.5-10.5) mg/dL Total Bilirubin (0.15-1.2) mg/dL AST (0-32) U/L ALT (0-33) U/L Alkaline Phosphata se (35-105) IU/L Creatine Kinase (26-192) U/L Troponin T Baselin e (0-10) ng/L Troponin T 120 Min [place] 17.61 H (0-10) ng/L Delta Troponin T -0.39 L (0-10) ABS# C-Reactive Protein (0.0-4.9) mg/L Total Protein (6.6-8.7) g/dL Albumin (3.5-5.2) g/dL Globulin (1.3-4.6) g/dL COVID Results: No Data to Display Discharge Plan Discharge Patient Disposition: Home Clinical Impression: COVID-19 Condition: Stable Prescriptions: New dexamethasone 6 mg tablet 6 mg PO DAILY Qty: 7 RF: 0 albuterol sulfate 90 mcg/actuation HFA aerosol inhaler 2 inh INHALATION Q4H PRN (Reason: shortness of breath or wheezing) Qty: 18 RF: 0 Discontinued prednisone 20 mg tablet 60 mg PO DAILY 9 Days Qty: 18 RF: 0 No Action oxycodone-acetaminophen [Percocet] 5-325 mg tablet 1 tab PO BID PRN (Reason: Pain) RF: 0 ibuprofen 800 mg tablet 800 mg PO TID PRN (Reason: Pain) RF: 0 pregabalin [Lyrica] 225 mg capsule 225 mg PO BID RF: 0 atorvastatin 40 mg tablet 40 mg PO DAILY RF: 0 insulin detemir U-100 100 unit/mL (3 mL) insulin pen 50 unit SUBCUT BID RF: 0 glipizide 5 mg tablet 10 mg PO DAILY RF: 0 gemfibrozil 600 mg tablet 600 mg PO BID RF: 0 diclofenac sodium [Voltaren] 1 % gel 2 gm TOPICAL QID RF: 0 ropinirole 1 mg tablet 1 mg PO TID RF: 0 duloxetine 60 mg capsule, delayed rel sprinkle 60 mg PO DAILY RF: 0 potassium chloride [Klor-Con M20] 20 mEq tablet,ER particles/crystals 20 meq PO DAILY RF: 0 Combivent Respimat 20-100 mcg/actuation mist 1 puff INHALATION Q6H PRN (Reason: Shortness Of Breath) RF: 0 trazodone 100 mg tablet 100 mg PO DAILY RF: 0 furosemide 40 mg tablet 40 mg PO DAILY RF: 0 polyethylene glycol 3350 [Miralax] 17 gram/dose powder 17 gm PO DAILY PRN (Reason: Constipation) RF: 0 timolol 0.5 % drops 1 drop ophthalmic (eye) DAILY RF: 0 sennosides-docusate sodium [Senna with Docusate Sodium] 8.6-50 mg tablet 1 tab-cap PO DAILY RF: 0 lansoprazole 30 mg capsule,delayed release(DR/EC) 30 mg PO DAILY RF: 0 cholecalciferol (vitamin D3) 1,250 mcg (50,000 unit) capsule 1,250 mcg PO Q7D RF: 0 valacyclovir 500 mg tablet 1,000 mg PO Q8H 7 Days Qty: 42 RF: 0 oxybutynin chloride 5 mg Tablet 5 mg PO DAILY RF: 0 tizanidine 2 mg Capsule 2 mg PO TID PRN (Reason: Muscle Pain) RF: 0 alprazolam 0.25 mg Tablet 0.125 mg PO Q12H PRN (Reason: Anxiety) Qty: 0 RF: 0 Discharge Orders: Discharge ED (Routine); Ordered 05/14/20 Ordered By: Frederic Sharp Other Ambulatory Orders: DME: Oxygen (Order) Location: None Selected Ordered By: Frederic Sharp Referrals: Curtis Sepulveda [Primary Care Provider] - Discharge Diet: Usual diet Discharge Activity: Limit activity as instructed Activity Restrictions/Additional Instructions: Remain in quarantine as directed by public health. Stop prednisone changed to dexamethasone. Monitor oxygen saturations at home and use oxygen you were given here today. Follow-up with your primary care doctor within the week. If you have worsening symptoms return. Coding Level of Care Code ED Study Abroad Advisor for Hyun Harden
--- NOTE | 2020-05-14 09:14 | CT_ITS ---
WS: [id number] CT HEAD TECHNIQUE: Noncontrast CT of the head obtained from the skullbase to the vertex. CLINICAL INFORMATION: AMS COMPARISON: October 16, 2019 DLP: 2412.[address] scans at [facility] use at least one of these dose optimization techniques: automat ed exposure control; mA and/or kV adjustment per patient size (includes targeted exams where dose is matched to clinical indication); or iterative reconstruction. FINDINGS: No evidence of intracranial hemorrhage or mass effect. Ventricular system and basal cisterns are wolf nt. Mild small vessel changes with mild parenchymal volume loss. Chronic lacunar infarcts in the righ t caudate and left lateral basal ganglia. No extra-axial fluid collections. No evidence of mass or ma ss effect. Normal morris-white differentiation. Paranasal sinuses and mastoid air cells are well aerated. .Normal visualized soft tissues. Unchanged bilateral proptosis. CT/CT head wo con* [id number] IMPRESSION: 1. No evidence of intracranial hemorrhage or mass effect. 2. Mild small vessel changes. Mild parenchymal volume loss. 3. Unchanged bilateral proptosis. 4. No acute intracranial findings.
[2020-05-14 09:27] LABS: Alanine Aminotransferase 35 U/L (0-33); Albumin Level 3.7 g/dL (3.5-5.2); Alkaline Phosphatase 56 IU/L (35-105); Anion Gap 12.2 (5-19); Aspartate Amino Transferase 36 U/L (0-32); Blood Urea Nitrogen 9 mg/dL (8-23); C Reactive Protein 67.9 mg/L (0.0-4.9); Calcium 9.3 mg/dL (8.5-10.5); Carbon Dioxide 30 mmol/L (22-29); Chloride 99 mmol/L (98-107); Creatine Phosphokinase 27 U/L (26-192); Creatinine Clr Calc Pharmacy 68.5357; Glomerular Filtration Rate 82.7 mL/min (90-130); Glucose 182 mg/dL (65-115); Osmolality Calculated 287 mOsm/kg (285-295); Potassium 4.2 mmol/L (3.5-5.1); Sodium 137 mmol/L (136-145); Total Bilirubin 0.8 mg/dL (0.15-1.2); Total Protein 6.7 g/dL (6.6-8.7)
[2020-05-14 09:28] LABS: Troponin(5th) Baseline 18 ng/L (0-10)
[2020-05-14 09:29] LABS: D Dimer 0.68 ug/mIFEU (0-0.59)
--- NOTE | 2020-05-14 09:29 | CT_ITS ---
WS: [id number] CTA OF THE CHEST WITH PULMONARY EMBOLISM PROTOCOL TECHNIQUE: High-resolution contrast enhanced CTA of the chest with coronal and sagittal reformatted i mages with pulmonary embolism protocol. MIP images are also reviewed. CLINICAL INFORMATION: dyspena/COVID COMPARISON: None. DLP: 525.[address] scans at [facility] use at least one of these dose optimization techniques: automat ed exposure control; mA and/or kV adjustment per patient size (includes targeted exams where dose is matched to clinical indication); or iterative reconstruction. FINDINGS: Proximal main pulmonary arteries are normal. Normal segmental and subsegmental pulmonary arteries. No filling defects. No evidence of pulmonary embolus. Moderate chronic emphysematous changes. Mild scattered hazy groundglass infiltrates in both lungs mor e prominent in the perihilar and subpleural regions with subpleural nodularity. Findings are nonspeci fic but Recommend correlation for COVID 19 pneumonia. No focal consolidation or pleural fluid. No med iastinal or hilar lymphadenopathy. No axillary lymphadenopathy. Adrenal glands are normal. Left renal cysts. Small esophageal hiatal hernia. CT/CT angio chest PE protcl [id number] IMPRESSION: 1. No evidence of pulmonary embolus. 2. Moderate chronic emphysematous changes. 3. Scattered hazy groundglass infiltrates described above nonspecific but can be seen with COVID19 pneumonia. Subpleural nodularity. 4. No focal consolidation. Attempted notification Frederic Sharp DO at 05/14/2020 10:40 AM. \
[2020-05-14 09:46] VITALS: BP 130/89; PULSE 86; O2SAT 90
--- NOTE | 2020-05-14 09:47 | PC.NURSE ---
pt 90-92% on room air. pt placed on 2L per nasal cannula.
--- NOTE | 2020-05-14 09:59 | PC.NURSE ---
pt to ct by stretcher with tech
[2020-05-14] MEDS: iohexol 350 mg/mL 100 mL Btl IV (10:11)
--- NOTE | 2020-05-14 10:11 | ECG_ITS ---
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 Measurements Intervals [place] Rate: 88 P: 56 CO: 129 QRS: 42 QRSD: 79 T: 125 QT: 312 QTc: 378 Interpretive Statements SINUS RHYTHM NONSPECIFIC ST & T-WAVE ABNORMALITY Compared to ECG 05/14/2020 08:24:35 Possible ischemia no longer present T-wave abnormality still present Electronically Signed On 05-14-2020 19:21:38 MARKET SUPERINTENDENT by Rina Pérez M.D. [email or web address]
[2020-05-14 11:28] VITALS: PULSE 94; O2SAT 93
[2020-05-14 11:39] LABS: Lactic Sepsis W/Reflex 0.9 mmol/L (0.5-2.2)
[2020-05-14 11:40] LABS: Troponin 5 2HR 17.61 ng/L (0-10)
[2020-05-14 11:47] LABS: Troponin 5 2HR Delta -0.39 ABS# (0-10)
[2020-05-14 12:57] VITALS: BP 140/80; PULSE 95; O2SAT 90
== END 2020-05-14 13:00 | disposition home or self-care (01) ==
PROVIDERS: Emergency Provider Family Medicine; PCP Family Medicine
DX: U07.1 COVID-19 (principal); Z79.4 Long term (current) use of insulin; Z86.73 Personal history of transient ischemic attack (TIA), and cerebral infarction without residual deficits; I10 Essential (primary) hypertension; E11.42 Type 2 diabetes mellitus with diabetic polyneuropathy; Z87.891 Personal history of nicotine dependence
CPT/HCPCS: 12345; 36415; 36600; 70450; 71045; 71275; 80053; 82550; 82803; 83605; 84484; 85025; 85378; 86140; 87040; 93005; 99283; 99284; Q9967

== ENCOUNTER 2022-03-31 00:26 | Inpatient (IN) | payer MEDICARE, MEDICAID, SELFPAY ==
[2022-03-31] VITALS (42 sets, daily range): BP systolic 91–179; BP diastolic 46–125; PULSE 54–79; RESP 13–31; TEMP 36.1–36.6; O2SAT 90–100; BMI 38.7
--- NOTE | 2022-03-31 00:29 | P.HP_ITS ---
Providers/Chief Complaint Admitting Physician: Michael Nash MD Primary Care Provider: Curtis Sepulveda Chief Complaint: Hypoglycemia, Metabloic acidosis History of Present Illness Jyoti Mak is a 71 year old female who came from [facility] ER patient was admitted for management and evaluation of hypoglycemia, there was concern for accidental overdose on insulin, her pH was 7.21 PCO2 61 bicarb 33, lactic acid normal, white count 3.9, she is requiring ICU bed?so she was transferred to our facility. Repeat pH was 7.18 PCO2 70 she was on BiPAP in the ER until she was transferred to our facility at the time of evaluation Patient is awake and alert oriented to time place and person She is able to tell me her name she is also able to tell me the answer of 100-7 correctly, she is able to tell me her daughter's name I quickly put her on BiPAP settings 20/6 FiO2 40% respiratory rate 14 she is making tidal volume up to 400- 450, requested RT to get an ABG I have started on D10, patient stating that she always had blue toes, she does have palpable pulses of bilateral feet, feet are cold, I will start her on therapeutic Lovenox, her D-dimer was high however CTA ruled out PE, BNP 1550, potassium 1.3, sodium 148, COVID PCR negative Patient is stating that she was feeling short of breath at baseline she uses 3 to 4 L of oxygen, she lives alone, when EMS arrived she was saturating in 70s on room air she was put on 4 L nasal cannula that improved her oxygen at that time her glucose was around 38 after getting D10 amp her blood sugar improved to 95 which dropped again to 58mg/dl Chest x-ray showing vascular congestion, cor pulmonale Review of Systems Const: Reports: chills and body aches; Denies: fever(s) Eyes: Denies: change in vision ENMT: Denies: throat pain Card: Reports: edema, dyspnea on exertion and orthopnea; Denies: swelling of feet/ankles Resp: Reports: dyspnea GI: Denies: abdominal pain : Denies: flank pain Musc: Denies: neck pain Skin/Breast: Reports: rash Neuro: Reports: headache(s) Psych: Reports: depression and sleeping more Endo: Denies: polyuria Felix/Lymph: Denies: easy bruising All/Imm: Denies: urticaria Medications/Allergies Home Medications Medication Instructions Recorded Confirmed Last Taken Type atorvastatin 40 mg tablet 40 mg PO DAILY 07/09/19 10/19/19 10/15/19 History cholecalciferol (vitamin D3) 1,250 1,250 mcg PO Q7D 07/09/19 10/19/19 10/10/19 History mcg (50,000 unit) capsule diclofenac sodium 1 % topical gel 2 gm topical QID 07/09/19 10/19/19 Unknown History (Voltaren) duloxetine 60 mg capsule,delayed 60 mg PO DAILY 07/09/19 10/19/19 10/15/19 History release sprinkle furosemide 40 mg tablet 40 mg PO DAILY 07/09/19 10/19/19 10/15/19 History gemfibrozil 600 mg tablet 600 mg PO BID 07/09/19 10/19/19 10/15/19 History glipizide 5 mg tablet 10 mg PO DAILY 07/09/19 10/19/19 10/15/19 History ibuprofen 800 mg tablet 800 mg PO TID PRN Pain 07/09/19 10/19/19 Unknown History insulin detemir U-100 100 unit/mL 50 unit SUBCUT BID 07/09/19 10/19/19 10/15/19 History (3 mL) subcutaneous pen ipratropium 20 mcg-albuterol 100 1 puff inhalation Q6H PRN 07/09/19 10/19/19 10/15/19 History mcg/actuation mist for inhalation Shortness Of Breath (Combivent Respimat) lansoprazole 30 mg capsule,delayed 30 mg PO DAILY 07/09/19 10/19/19 10/15/19 History release oxycodone-acetaminophen 5 mg-325 1 tab PO BID PRN Pain 07/09/19 10/19/19 10/15/19 History mg tablet (Percocet) polyethylene glycol 3350 17 17 gm PO DAILY PRN Constipation 07/09/19 10/19/19 Unknown History gram/dose oral powder (Miralax) potassium chloride 20 mEq 20 meq PO DAILY 07/09/19 10/19/19 Unknown History tablet,extended release(part/cryst) (Klor-Con M) pregabalin 225 mg capsule (Lyrica) 225 mg PO BID 07/09/19 10/19/19 10/15/19 History ropinirole 1 mg tablet 1 mg PO TID 07/09/19 10/19/19 10/15/19 History sennosides 8.6 mg-docusate sodium 1 tab-cap PO DAILY 07/09/19 10/19/19 10/15/19 History 50 mg tablet (Senna with Docusate Sodium) timolol 0.5 % eye drops 1 drop ophthalmic (eye) DAILY 07/09/19 10/19/19 10/15/19 History trazodone 100 mg tablet 100 mg PO DAILY 07/09/19 10/19/19 10/15/19 History oxybutynin chloride 5 mg tablet 5 mg PO DAILY 10/16/19 10/19/19 10/15/19 History tizanidine 2 mg capsule 2 mg PO TID PRN Muscle Pain 10/16/19 10/19/19 Unknown History alprazolam 0.25 mg tablet 0.125 mg PO Q12H PRN Anxiety #0 10/17/19 10/19/19 Unknown Rx tabs valacyclovir 500 mg tablet 1,000 mg PO Q8H 7 days #42 tabs 10/19/19 10/19/19 Unknown Rx albuterol sulfate 90 mcg/actuation 2 inh inhalation Q4H PRN shortness 05/14/20 Unknown Rx aerosol inhaler of breath or wheezing #18 grams dexamethasone 6 mg tablet 6 mg PO DAILY #7 tabs 05/14/20 Unknown Rx Allergies Allergy/AdvReac Type Severity Reaction Status Date / Time gabapentin Allergy ADV-Weaknes Verified 10/19/19 12:32 s diazepam [From Valium] AdvReac Mild confusion Verified 10/19/19 12:32 PFSH Acute PFSH: Medical History (Updated 03/31/22 @ 00:56 by Michael Nash MD) CVA (cerebral vascular accident) Displacement of lumbar disc with radiculopathy DM type 2 (diabetes mellitus, type 2) Insulin-dependent High risk medication use Hypertension Neuropathy Neuropathy, peripheral Opioid dependence, daily use Restless leg syndrome Spondylolisthesis, lumbar region Surgical History History of cholecystectomy (~1974) History of knee surgery (~2011) arthroscopic History of laminectomy (10/29/13) Bilateral L4-L5 Laminotomy/Foraminotomy. Dr. Molina History of open reduction and internal fixation (ORIF) procedure Right tib/fib History of tubal ligation Family History Mother Lung disease Sister Diabetes Grandmother Cancer Social History Smoking and tobacco status: former smoker Alcohol intake: current Alcohol intake frequency: holidays/special occasions only Household members: none Marital status: / Current occupational status: disabled History of recent travel: No Physical Exam Narrative: Patient is awake and alert oriented to time place and person GCS 15 However drowsy Currently on BiPAP S1, S2 variable rhythm Abdomen soft, distended, Multiple insulin injection sites without active complications of cellulitis Lower extremity skin mottling noted however dorsalis pedis pulses are palpable Feet are cold bilaterally Patient is currently on BiPAP Able to answer my question appropriately No signs of stroke A&P Assessment and plan (1) DM type 2 (diabetes mellitus, type 2): (2) Neuropathy: (3) Hypertension: (4) Restless leg syndrome: (5) Opioid dependence, daily use: (6) Acute on chronic respiratory failure with hypoxia and hypercapnia: Plan Acute on chronic hypoxia, hypercapnia respiratory failure Currently on BiPAP Outside facility pH 7. 1 8, PCO2 70 Currently patient is able to protect her airways Awake and alert no acute indication for intubation She is full code X-ray showing vascular congestion Cor pulmonale presentation Acute CHF exacerbation BNP 1500 Vascular congestion and x-ray Hold Lasix for now because she is requiring D10 IV fluid Hypoglycemia related to her use of glipizide and insulin Check A1c level, currently continue D10 I will also give her IV steroids High D-dimer however no signs of PE as per outside CTA chest results, it is showing vascular congestion and right heart strain which could be related to pulm hypertension and cor pulmonale Lower extremity mottling Weak dorsalis pedis pulses Will request arterial Doppler I will start her on therapeutic Lovenox I do not have her extra weight, her Lovenox dose need to be readjusted She is full code I will start her on diet once we are able to wean off BiPAP Will request another ABG Requested stat BMP Patient is stating that her daughter should be notified in case of an emergency Attestations Medical Necessity Statement*: Anticipating more than 2 midnights Time Spent in Patient Care: 40 Coding Level of Care Code Acute Material Stockkeeper Yard for Chg Fwd Diagnoses DM type 2 (diabetes mellitus, type 2) E11.9 Neuropathy G62.9 Hypertension I10 Restless leg syndrome G25.81 Opioid dependence, daily use F11.20 Acute on chronic respiratory failure with hypoxia and hypercapnia J96.21; J96.22
[2022-03-31] MEDS: dextrose 10% 1,000 ML 100 ML IV (01:03)
[2022-03-31] MEDS: enoxaparin 40 mg/0.4 mL Syringe SUBCUT ×2 (01:04→13:26)
[2022-03-31] MEDS: dextrose 50% syringe 50 mL 25 ML IVP (01:43)
[2022-03-31 01:58] LABS: ABG PH Result 7.25 (7.35-7.45); Base Excess ABG 1.4 mmol/L (-2.0-2.0); Blood Gas Allen Test Pos; Blood Gas Sample Type Arterial; HCO3 ABG 30.4 mmol/L (22-26); PO2 ABG 79.4 mmHg (80.0-100.0)
[2022-03-31 01:59] LABS: Blood Gas Operator Identificat JB; Blood Gas Sample Site Radial, left; Oxygen Device BIPAP
[2022-03-31] MEDS: ipratropium-albuterol 3 mL Neb INHALATION ×3 (02:43→19:44)
[2022-03-31 02:53] LABS: Basophils % 0.3 %; Eosinophils # 0.1 10^3/uL (0.0-0.8); Eosinophils % 3.4 %; Hematocrit 43.3 % (37.0-47.0); Hemoglobin 12.5 g/dL (11.5-15.3); Lymphocytes # 0.8 10^3/uL (0.8-4.8); Lymphocytes % 22.5 %; Mean Corpuscular HGB Conc 28.9 g/dL (30.0-36.0); Mean Corpuscular Hemoglobin 28.3 pg (28.0-34.0); Mean Corpuscular Volume 98.2 fl (81-99); Mean Platelet Volume 12.4 fL (7.4-10.4); Monocytes # 0.3 10^3/uL (0.2-0.9); Monocytes % 8.5 %; Neutrophils # 2.29 10^3/uL (1.8-7.7); Neutrophils % 64.5 %; Nucleated Red Blood Cells % 0 %; Platelet Count 106 10^3/cmm (130-400); Red Blood Count 4.41 10^6/uL (4.1-5.3); Red Cell Distribution Width 15.9 % (12.1-15.1); White Blood Count 3.6 10^3/uL (4.0-10.0)
[2022-03-31 03:09] LABS: Estmated Average Glucose 131; Hemoglobin A1C 6.2 % (4.0-6.0)
[2022-03-31 03:15] LABS: Anion Gap 9.7 (5-19); Blood Urea Nitrogen 19 mg/dL (8-23); C Reactive Protein 14.4 mg/L (0.0-4.9); Carbon Dioxide 33 mmol/L (22-29); Chloride 104 mmol/L (98-107); Glucose 138 mg/dL (65-115); Magnesium 1.8 mg/dL (1.7-2.3); Osmolality Calculated 298 mOsm/kg (285-295); Potassium 4.7 mmol/L (3.5-5.1); Sodium 142 mmol/L (136-145)
[2022-03-31 06:19] LABS: Glucose Point of Care 176 mg/dL (70-110)
[2022-03-31 06:19] LABS: Glucose Point of Care 106 mg/dL (70-110)
[2022-03-31 06:19] LABS: Glucose Point of Care 153 mg/dL (70-110)
[2022-03-31 06:19] LABS: Glucose Point of Care 161 mg/dL (70-110)
[2022-03-31 06:19] LABS: Glucose Point of Care 66 mg/dL (70-110)
--- NOTE | 2022-03-31 07:13 | XRR_ITS ---
PROCEDURE INFORMATION: Exam: XR Chest Exam date and time: 03/31/2022 7:19 AM Age: 71 years old Clinical indication: Condition or disease; Lung condition and disease; Pulmonary edema; Status not specified; Additional info: Pulm oedema TECHNIQUE: Imaging protocol: Radiologic exam of the chest. Views: 1 view. COMPARISON: CR XR chest 1V portable [id number] 05/14/2020 8:09 AM FINDINGS: Lungs: Normal lung volumes. Mild perihilar interstitial opacities are seen, suggestive of mild pulmonary edema. No confluent airspace opacities in the lungs. Pleural spaces: No pleural effusion. No pneumothorax. Heart/Mediastinum: There is unchanged mild cardiomegaly. There is a mildly tortuous thoracic aorta. The trachea is midline. Bones/joints: No acute osseous abnormalities seen. Soft tissues: Multiple external densities are seen overlying the chest, limiting assessment. XR/XR chest 1V portable [id number] IMPRESSION: 1. Mild perihilar interstitial opacities, suggestive of mild pulmonary edema. No confluent airspace opacities in the lungs. 2. Unchanged mild cardiomegaly.
--- NOTE | 2022-03-31 07:13 | USR_ITS ---
PROCEDURE INFORMATION: Exam: US Duplex Lower Extremity Arteries Exam date and time: 03/31/2022 7:44 AM Age: 71 years old Clinical indication: Other: Cyanosis TECHNIQUE: Imaging protocol: Real-time ultrasound scan of the arteries of the bilateral lower extremities with 2-D morris scale, color Doppler flow and spectral waveform analysis. Images documented and saved. COMPARISON: US pelvic with transvaginal 08/06/2019 9:21 AM FINDINGS: RIGHT: Common femoral artery: Normal triphasic waveforms. Normal peak systolic velocities. Superficial femoral artery: Normal triphasic waveforms. Peak systolic velocities within normal limits. Popliteal artery: Normal triphasic waveforms. Peak systolic velocities within normal limits. Posterior tibial artery: Normal triphasic waveforms. Peak systolic velocities within normal limits. Dorsalis pedis artery: Normal triphasic waveforms. Peak systolic velocities within normal limits. LEFT: Common femoral artery: Normal triphasic waveforms. Normal peak systolic velocities. Superficial femoral artery: Normal triphasic waveforms. Peak systolic velocities within normal limits. Popliteal artery: Normal triphasic waveforms. Peak systolic velocities within normal limits. Posterior tibial artery: Normal triphasic waveforms. Peak systolic velocities within normal limits. Dorsalis pedis artery: Normal triphasic waveforms. Peak systolic velocities within normal limits. If there is further clinical concern, CTA, MRA or conventional angiography may be performed for complete assessment. US/CV arterial duplex [facility] [id number] IMPRESSION: Unremarkable lower extremity arterial Doppler evaluation.
[2022-03-31] MEDS: FUROsemide 10 mg/mL SDV 4mL 40 MG IVP ×2 (07:36→18:19)
[2022-03-31 07:45] LABS: Glucose Point of Care 193 mg/dL (70-110)
[2022-03-31] MEDS: duloxetine 60 mg Capsule PO (08:19)
[2022-03-31] MEDS: insulin lispro 100 unit/1 mL SUBCUT ×3 (08:19→18:19)
[2022-03-31 09:18] LABS: Glucose Point of Care 166 mg/dL (70-110)
[2022-03-31 10:10] LABS: ABG PH Result 7.31 (7.35-7.45); Arterial Blood Gas Hematocrit 41.2 % (37-47); Base Excess ABG 4.2 mmol/L (-2.0-2.0); Blood Gas Allen Test Pos; Blood Gas Operator Identificat AMH; Blood Gas Sample Site Radial, right; Blood Gas Sample Type Arterial; HCO3 ABG 32.5 mmol/L (22-26); Oxygen Device NC; PO2 ABG 64.2 mmHg (80.0-100.0)
[2022-03-31 10:24] LABS: ABG PCO2 65.1 mmHg (35-45)
[2022-03-31 11:25] LABS: Glucose Point of Care 199 mg/dL (70-110)
--- NOTE | 2022-03-31 11:33 | PC.CHAP ---
Pastoral Care Encounter/Spiritual Assessment Type of Contact [] Declined tractor crane engineer visit [] Patient/Family/Request visit [] Outpatient visit [] Follow-up visit [] Physician referral [] Code/Alert [x] Routine visit [] Staff referral [] Actively dying [x] Patient sleeping [] Family support [] [] Out of room [] Palliative care [] [] Receiving care in room [] Pre-surgical visit [] Trauma [] Long length of stay [x] ICU visit [] Other: Relational/Emotional Strength [] Patient feels connected with others/family/visitors/staff [] Distress [] Loneliness/isolation [] Abandonment Spirituality of Patient [] Person of Carlene [] Attends Cheondoism of their Carlene [] Believes in Prayer [] Reads Bible or Buddhism materials [] There are Spiritual issues to be addressed Door Worker Interventions [x] Prayer [] Active listening [] Non-anxious presence [] Spiritual/emotional support [] Crisis/trauma care [] Spiritual counseling [] Bereavement support [] Provided bereavement packet [] Provided Bible/devotional materials [] Provided toy/stuffed animal, coloring book to patient or family member [] Provided Communion [] Anointing/[place] [] Salvation [x] Completed spiritual assessment [] Other: Impact on Illness or Injury [] Angry [] Fearful [] Anxious [] Often cries [] Exhaustion [] Unable to work [] Unable to attend druze [] Unable to walk/stand [] Unable to read [] Unable to drive [] Unable to eat/drink [] Unable to sleep [] Unable to be with family [] Patient intubated [] Other: Summary Time spent with patient
[2022-03-31 12:09] LABS: Glucose Point of Care 170 mg/dL (70-110)
[2022-03-31 14:52] LABS: Glucose Point of Care 247 mg/dL (70-110)
[2022-03-31 15:40] LABS: Glucose Point of Care 223 mg/dL (70-110)
--- NOTE | 2022-03-31 17:01 | PM.MISC ---
Miscellaneous Note Purpose of Documentation: Overnight labs and H&P reviewed. ABGs this morning is looking improved. Accu-Cheks are now much better between 2 23-2 47. HbA1c returned at 6.2. Excellent diabetic control. ABG improving
[2022-03-31 17:57] LABS: Glucose Point of Care 160 mg/dL (70-110)
[2022-03-31] MEDS: atenolol 50 mg Tablet 25 MG PO (18:19)
[2022-03-31 19:54] LABS: Glucose Point of Care 116 mg/dL (70-110)
[2022-03-31] MEDS: ropinirole 1 mg Tablet PO (20:11)
[2022-03-31] MEDS: CLONazepam 1 mg Tablet 5 MG PO (20:12)
[2022-03-31 21:44] LABS: Glucose Point of Care 124 mg/dL (70-110)
[2022-03-31 22:37] LABS: Glucose Point of Care 106 mg/dL (70-110)
--- NOTE | 2022-03-31 23:31 | PC.NURSE ---
Transported pt to CT on continuos monitoring, in CT pt screamed when 20 L AC IV was flushed, this RN flushed and harry blood from IV but was positional. Pt transported back to ICU where a 20 G R FA IV was started. IV flushes and draws blood. Will take pt back to CT.
[2022-04-01] VITALS (83 sets, daily range): BP systolic 88–169; BP diastolic 47–91; PULSE 6–73; RESP 12–29; TEMP 36.8–37.4; O2SAT 88–100
--- NOTE | 2022-04-01 00:35 | PC.NURSE ---
Last BG 80, pt drak 118 ml orange juice, pt refused to drink another.
[2022-04-01] MEDS: enoxaparin 40 mg/0.4 mL Syringe SUBCUT ×2 (00:46→12:30)
[2022-04-01 00:52] LABS: Glucose Point of Care 80 mg/dL (70-110)
[2022-04-01 00:52] LABS: Glucose Point of Care 75 mg/dL (70-110)
--- NOTE | 2022-04-01 01:05 | PC.NURSE ---
Pt drank another 118ml of orange juice, pt is A&Ox2, she does not know where she is or why she is her. Pt reoriented to location and situation.
[2022-04-01] MEDS: dextrose 50% syringe 50 mL IVP (01:17)
[2022-04-01 01:34] LABS: Glucose Point of Care 102 mg/dL (70-110)
[2022-04-01 01:34] LABS: Glucose Point of Care 49 mg/dL (70-110)
[2022-04-01 01:34] LABS: Glucose Point of Care 67 mg/dL (70-110)
[2022-04-01] MEDS: dextrose 10% 1,000 ML 50 ML IV (01:37)
--- NOTE | 2022-04-01 01:39 | PC.NURSE ---
BG @0010 was 49, gave IVP Dextrose (refer to MAR), retook BG @0018 and it was 67, called Dr. Nash, new order to start D10 @50ml/hr.
[2022-04-01 02:05] LABS: Glucose Point of Care 216 mg/dL (70-110)
--- NOTE | 2022-04-01 02:06 | PC.NURSE ---
Notifed Dr. Nash that ICU 3 does not have morning labs ordered. No new orders at this time.
[2022-04-01] MEDS: ipratropium-albuterol 3 mL Neb INHALATION ×2 (03:02→19:31)
[2022-04-01 04:25] LABS: Glucose Point of Care 182 mg/dL (70-110)
[2022-04-01 05:25] LABS: Glucose Point of Care 101 mg/dL (70-110)
[2022-04-01 06:16] LABS: Glucose Point of Care 88 mg/dL (70-110)
[2022-04-01 07:18] LABS: Glucose Point of Care 96 mg/dL (70-110)
[2022-04-01] MEDS: FUROsemide 10 mg/mL SDV 4mL 40 MG IVP ×2 (08:04→18:08)
[2022-04-01 08:18] LABS: Glucose Point of Care 135 mg/dL (70-110)
[2022-04-01 09:24] LABS: Glucose Point of Care 141 mg/dL (70-110)
[2022-04-01] MEDS: ropinirole 1 mg Tablet PO (09:56)
[2022-04-01] MEDS: sennosides-docusate Tablet 1 TAB PO (09:57)
[2022-04-01] MEDS: levothyroxine 50 mcg Tablet PO (09:57)
[2022-04-01] MEDS: duloxetine 60 mg Capsule PO (09:57)
[2022-04-01] MEDS: atenolol 50 mg Tablet 25 MG PO ×2 (09:57→17:59)
[2022-04-01] MEDS: oxybutynin 5 mg Tablet PO (09:57)
[2022-04-01] MEDS: atorvastatin 40 mg Tablet 80 MG PO (09:57)
[2022-04-01 10:15] LABS: Glucose Point of Care 98 mg/dL (70-110)
[2022-04-01] MEDS: nitrofurantoin SR (BID) 100 mg Capsule PO (10:19)
[2022-04-01 11:02] LABS: Glucose Point of Care 293 mg/dL (70-110)
[2022-04-01 12:14] LABS: Glucose Point of Care 142 mg/dL (70-110)
--- NOTE | 2022-04-01 12:20 | CT_ITS ---
WS: [id number] CT HEAD TECHNIQUE: Noncontrast CT of the head obtained from the skullbase to the vertex. CLINICAL INFORMATION: AMS COMPARISON: None. DLP: 2108.[address] scans at [facility] use at least one of these dose optimization techniques: automated e xposure control; mA and/or kV adjustment per patient size (includes targeted exams where dose is matc hed to clinical indication); or iterative reconstruction. FINDINGS: No evidence of intracranial hemorrhage or mass effect. Ventricular system and basal cisterns are wolf nt. Mild small vessel changes with mild parenchymal volume loss. No extra-axial fluid collections. Ti ny chronic lacunar infarcts in the LEFT lateral basal ganglia. No evidence of mass or mass effect. Ti ny chronic lacunar infarct RIGHT cerebellum. Paranasal sinuses and mastoid air cells are well aerated. Trace mucosal thickening mastoid tips. . Un changed bilateral proptosis. CT/CT head wo con* [id number] IMPRESSION: 1. No evidence of intracranial hemorrhage or mass effect. 2. Mild small vessel changes. Mild parenchymal volume loss. 3. No acute intracranial findings.
--- NOTE | 2022-04-01 12:37 | PC.CHAP ---
Pastoral Care Encounter/Spiritual Assessment Type of Contact [] Declined dental appliance fixer visit [] Patient/Family/Request visit [] Outpatient visit [] Follow-up visit [] Physician referral [] Code/Alert [x] Routine visit [] Staff referral [] Actively dying [] Patient sleeping [x] Family support [] [] Out of room [] Palliative care [] [] Receiving care in room [] Pre-surgical visit [] Trauma [] Long length of stay [x] ICU visit [] Other: Relational/Emotional Strength [] Patient feels connected with others/family/visitors/staff [] Distress [] Loneliness/isolation [] Abandonment Spirituality of Patient [] Person of Carlene [] Attends Evangelical of their Carlene [] Believes in Prayer [] Reads Bible or Restorationism materials [] There are Spiritual issues to be addressed Lead Process Engineer Interventions [x] Prayer [] Active listening [] Non-anxious presence [] Spiritual/emotional support [] Crisis/trauma care [] Spiritual counseling [] Bereavement support [] Provided bereavement packet [] Provided Bible/devotional materials [] Provided toy/stuffed animal, coloring book to patient or family member [] Provided Communion [] Anointing/[place] [] Salvation [x] Completed spiritual assessment [] Other: Impact on Illness or Injury [] Angry [] Fearful [] Anxious [] Often cries [] Exhaustion [] Unable to work [] Unable to attend religion [] Unable to walk/stand [] Unable to read [] Unable to drive [] Unable to eat/drink [] Unable to sleep [] Unable to be with family [] Patient intubated [] Other: Summary Time spent with patient
[2022-04-01 12:42] LABS: ABG PH Result 7.43 (7.35-7.45); Arterial Blood Gas Hematocrit 39.9 % (37-47); Base Excess ABG 14.7 mmol/L (-2.0-2.0); Blood Gas Allen Test Pos; Blood Gas Operator Identificat CAK; Blood Gas Sample Site Radial, left; Blood Gas Sample Type Arterial; HCO3 ABG 41.9 mmol/L (22-26); Oxygen Device NC; PO2 ABG 75.9 mmHg (80.0-100.0)
[2022-04-01 12:43] LABS: ABG PCO2 62.7 mmHg (35-45)
[2022-04-01 13:05] LABS: Basophils % 0.5 %; Eosinophils # 0.3 10^3/uL (0.0-0.8); Eosinophils % 6.3 %; Hematocrit 43.1 % (37.0-47.0); Hemoglobin 13.6 g/dL (11.5-15.3); Lymphocytes # 0.8 10^3/uL (0.8-4.8); Lymphocytes % 18.1 %; Mean Corpuscular HGB Conc 31.6 g/dL (30.0-36.0); Mean Corpuscular Hemoglobin 28.8 pg (28.0-34.0); Mean Corpuscular Volume 91.1 fl (81-99); Monocytes # 0.4 10^3/uL (0.2-0.9); Monocytes % 8.1 %; Neutrophils # 2.95 10^3/uL (1.8-7.7); Neutrophils % 66.5 %; Nucleated Red Blood Cells % 0 %; Platelet Count 124 10^3/cmm (130-400); Red Blood Count 4.73 10^6/uL (4.1-5.3); White Blood Count 4.4 10^3/uL (4.0-10.0)
[2022-04-01 13:22] LABS: Alanine Aminotransferase 20 U/L (0-33); Albumin Level 3.6 g/dL (3.5-5.2); Alkaline Phosphatase 48 U/L (35-105); Anion Gap 10.4 (5-19); Aspartate Amino Transferase 29 U/L (0-32); Blood Urea Nitrogen 20 mg/dL (8-23); Calcium 9.7 mg/dL (8.5-10.5); Carbon Dioxide 39 mmol/L (22-29); Chloride 95 mmol/L (98-107); Globulin 3.1 g/dL (1.3-4.6); Glucose 126 mg/dL (65-115); Osmolality Calculated 296 mOsm/kg (285-295); Potassium 3.4 mmol/L (3.5-5.1); Sodium 141 mmol/L (136-145); Total Bilirubin 0.6 mg/dL (0.15-1.2); Total Protein 6.7 g/dL (6.6-8.7)
[2022-04-01 13:26] LABS: Glucose Point of Care 124 mg/dL (70-110)
[2022-04-01 14:35] LABS: Amphetamines Screen Urine Negative (Negative); Barbiturates Screen Urine Negative (Negative); Benzodiazepines Screen Urine Negative (Negative); Cocaine Screen Urine Negative (Negative); Opiate Screen Urine Negative (Negative); PCP Screen Urine Negative (Negative); THC Screen Urine Negative (Negative)
[2022-04-01 14:44] LABS: Glucose Point of Care 186 mg/dL (70-110)
[2022-04-01 15:34] LABS: Glucose Point of Care 131 mg/dL (70-110)
[2022-04-01 16:30] LABS: Glucose Point of Care 204 mg/dL (70-110)
--- NOTE | 2022-04-01 16:42 | PM.PN ---
Subjective Subjective: Patient is noted to be more somnolent today, lethargic, patient's family is at bedside. They state that patient is not too much away from her baseline. Apparently at home patient also sleeps pretty much through the day. She is wheelchair-bound. Gets out of bed only to get in her wheelchair. She was hypoglycemic again overnight for which D10 was restarted. She has severe sleep apnea however does not use CPAP at home. Medications: Reviewed: Yes Vitals/I&O/Wt Last Vital Signs Temp 98.3 F 04/01/22 16:15 Pulse 57 L 04/01/22 16:35 Resp 21 H 04/01/22 16:15 BP 140/80 04/01/22 16:15 Pulse Ox 97 04/01/22 16:15 O2 Del Method 04/01/22 16:15 O2 Flow Rate 3 04/01/22 16:15 FiO2 30 04/01/22 08:25 04/01/22 04/01/22 04/01/22 06:59 14:59 22:59 Intake Total 480 / 480 Output Total 1450 / 2550 900 / 900 Balance -1450 / -1365 -420 / -420 Weight last 48 hrs Weight 95.98 kg Weight 95.98 kg Weight 95.98 kg Physical Exam Urinary Catheter Management: Rowe: Cath Placed During This Visit: yes Reason for Continuing Indwelling Catheter: Accurate Measurement of Urinary Output in Critically Ill Patients Urinary Catheter Date of Insertion: 03/31/22 Urinary Catheter Time of Insertion: 15:45 Data 04/01/22 13:00 04/01/22 13:00 A&P Assessment and plan (1) DM type 2 (diabetes mellitus, type 2): (2) Neuropathy: (3) Hypertension: (4) Restless leg syndrome: (5) Opioid dependence, daily use: (6) Acute on chronic respiratory failure with hypoxia and hypercapnia: Plan Acute on chronic hypoxia, hypercapnia respiratory failure Patient is noted to be somnolent and lethargic today. Per family this is not far from her baseline. Per them she pretty much sleeps through the day. Nonambulatory, wheelchair-bound most of the time. She only wakes up to eat her meals and then goes back to sleep. Patient does have known sleep apnea which contributes to her daytime somnolence, however patient does not wear her CPAP at home. We will repeat an ABG today to make sure that her hypercapnia is not worsening. We will additionally perform a CT of her head to ensure that she does not have any underlying CVA. Additionally check TSH. Her hypoglycemia has remained resolved however patient continues to be very lethargic. She was hypoglycemic last night after restarting her low-dose insulin. I have discontinued all insulin and D10 at this present time. Patient's HbA1c is only 6.2 as outpatient. Likely that she will not require continuation of insulin at discharge. BiPAP use encouraged to continue. Acute CHF exacerbation BNP 1500 Vascular congestion and x-ray Currently on Lasix 40 mg IV every 12 hour, diuresing well. Hypoglycemia related to her use of glipizide and insulin Discontinued all insulin and other antidiabetic medications. Discontinue D10, monitor her fingerstick with this change. High D-dimer however no signs of PE as per outside CTA chest results, it is showing vascular congestion and right heart strain which could be related to pulm hypertension and cor pulmonale Lower extremity mottling Arterial duplex is completely negative. Therapeutic Lovenox has been discontinued. She is full code Started her on a diet, patient does wake up at mealtime and will finish 25 to 30% of her meal. Her family at bedside indicates this is usual for her. Attestations Medical Necessity Statement*: CT head today, ABG, patient is very lethargic. Hypoglycemic overnight. We will discontinue all D10 and insulin monitor her fingerstick closely today. Repeat ABG and CT head. Coding Level of Care Code Acute Marine Electrician for Chg Fwd Diagnoses DM type 2 (diabetes mellitus, type 2) E11.9 Neuropathy G62.9 Hypertension I10 Restless leg syndrome G25.81 Opioid dependence, daily use F11.20 Acute on chronic respiratory failure with hypoxia and hypercapnia J96.21; J96.22
[2022-04-01 17:22] LABS: Glucose Point of Care 123 mg/dL (70-110)
[2022-04-01 22:06] LABS: Glucose Point of Care 162 mg/dL (70-110)
[2022-04-01] MEDS: CLONazepam 1 mg Tablet 5 MG PO (22:11)
[2022-04-02] VITALS (19 sets, daily range): BP systolic 115–152; BP diastolic 48–97; PULSE 60–72; RESP 13–21; TEMP 36.3–37.2; O2SAT 82–99
[2022-04-02 00:22] LABS: Glucose Point of Care 94 mg/dL (70-110)
[2022-04-02 02:29] LABS: Glucose Point of Care 92 mg/dL (70-110)
[2022-04-02 03:55] LABS: Glucose Point of Care 98 mg/dL (70-110)
[2022-04-02 05:18] LABS: Basophils % 0.6 %; Eosinophils # 0.3 10^3/uL (0.0-0.8); Eosinophils % 5.9 %; Hematocrit 45.3 % (37.0-47.0); Hemoglobin 13.7 g/dL (11.5-15.3); Lymphocytes # 1.4 10^3/uL (0.8-4.8); Lymphocytes % 26.8 %; Mean Corpuscular HGB Conc 30.2 g/dL (30.0-36.0); Mean Corpuscular Hemoglobin 28.5 pg (28.0-34.0); Mean Corpuscular Volume 94.4 fl (81-99); Mean Platelet Volume 12.3 fL (7.4-10.4); Monocytes # 0.5 10^3/uL (0.2-0.9); Monocytes % 10.1 %; Neutrophils # 2.85 10^3/uL (1.8-7.7); Neutrophils % 56.2 %; Nucleated Red Blood Cells % 0.6 %; Platelet Count 125 10^3/cmm (130-400); Red Cell Distribution Width 15.9 % (12.1-15.1); White Blood Count 5.1 10^3/uL (4.0-10.0)
[2022-04-02 05:43] LABS: Alanine Aminotransferase 27 U/L (0-33); Albumin Level 3.4 g/dL (3.5-5.2); Alkaline Phosphatase 55 U/L (35-105); Anion Gap 13.7 (5-19); Aspartate Amino Transferase 50 U/L (0-32); Blood Urea Nitrogen 24 mg/dL (8-23); Calcium 9.9 mg/dL (8.5-10.5); Carbon Dioxide 37 mmol/L (22-29); Chloride 93 mmol/L (98-107); Globulin 3.9 g/dL (1.3-4.6); Glucose 89 mg/dL (65-115); Osmolality Calculated 294 mOsm/kg (285-295); Potassium 3.7 mmol/L (3.5-5.1); Sodium 140 mmol/L (136-145); Total Bilirubin 0.7 mg/dL (0.15-1.2); Total Protein 7.3 g/dL (6.6-8.7)
[2022-04-02] MEDS: FUROsemide 10 mg/mL SDV 4mL 40 MG IVP (06:20)
[2022-04-02 07:50] LABS: Glucose Point of Care 115 mg/dL (70-110)
[2022-04-02] MEDS: atorvastatin 40 mg Tablet 80 MG PO (09:13)
[2022-04-02] MEDS: oxybutynin 5 mg Tablet PO (09:13)
[2022-04-02] MEDS: sennosides-docusate Tablet 1 TAB PO (09:13)
[2022-04-02] MEDS: nitrofurantoin SR (BID) 100 mg Capsule PO (09:13)
[2022-04-02] MEDS: atenolol 50 mg Tablet 25 MG PO (09:13)
[2022-04-02] MEDS: levothyroxine 50 mcg Tablet PO (09:13)
[2022-04-02 09:42] LABS: Glucose Point of Care 159 mg/dL (70-110)
[2022-04-02 11:09] LABS: Glucose Point of Care 267 mg/dL (70-110)
--- NOTE | 2022-04-02 11:30 | P.DS_ITS ---
Discharge Providers Date of Admission: 03/31/22 00:26 Date of Discharge: apr 02, 2022 Attending Provider at Admission: Michael Nash MD Attending Provider at Discharge: Toña Carvajal MD Primary Care Provider: Curtis Sepulveda Diagnoses at Discharge Discharge Diagnosis (1) DM type 2 (diabetes mellitus, type 2): Status: Acute Permanent problem details: Insulin-dependent (2) Neuropathy: Status: Acute (3) Hypertension: Status: Acute (4) Restless leg syndrome: Status: Acute (5) Opioid dependence, daily use: Status: Acute (6) Acute on chronic respiratory failure with hypoxia and hypercapnia: Status: Acute Reason for Visit Reason for Visit: Hypoglycemia, Metabloic acidosis Brief History: Myra Mak is a 71 year old female who came from [facility] ER patient was admitted for management and evaluation of hypoglycemia, there was concern for accidental overdose on insulin, her pH was 7.21 PCO2 61 bicarb 33, lactic acid normal, white count 3.9, ? she is requiring ICU bed?so she was transferred to our facility.? Repeat pH was 7.18 PCO2 70 she was on BiPAP in the ER until she was transferred to our facility at the time of evaluation Patient is awake and alert oriented to time place and person Hospital Course Hospital Course # Acute on chronic hypoxia, hypercapnia respiratory failure Patient noted to be somnolent and lethargic during .? Per family at bedside, this is not far from her baseline.? Per them she pretty much sleeps through the day.? Nonambulatory, wheelchair-bound most of the time.? She only wakes up to eat her meals and then goes back to sleep.? Patient does have known sleep apnea which contributes to her daytime somnolence, however patient does not wear her CPAP at home. she was at her baseline mentation at discharge as confirmed by family. normal CT head, normal TSH, hypercapnea resolved with bipap. Her hypoglycemia resolved with holding insulin and d10 administration. Patient's HbA1c is only 6.2 as outpatient.? insulin discontinued at discharge. BiPAP use encouraged to continue at home # acute CHF exacerbation BNP 1500 Vascular congestion and x-ray diuresed with Lasix responded well # Hypoglycemia related to her use of glipizide and insulin Discontinued all insulin and other antidiabetic medications. follow up with PCP High D-dimer however no signs of PE as per outside CTA chest results, it is showing vascular congestion and right heart strain which could be related to pulm hypertension and cor pulmonale Lower extremity mottling Arterial duplex is completely negative.? Physical Exam Narrative: General: No acute distress, AO x3 HEENT: PERRLA, pupils bilaterally equal and reactive, pallors not present Chest: Normal vesicular breath sounds, no added sounds, equal good air entry bilaterally CVS: S1-S2 regular, no murmurs, no tachycardia, no gallops, no rubs Abdomen: Soft, nontender, no organomegaly, bowel sounds present Neuro: No focal deficits, no facial deformity, AO x3, power 5/5 in all limbs Urinary Catheter Management: Rowe: Cath Placed During This Visit: yes Reason for Continuing Indwelling Catheter: Accurate Measurement of Urinary Output in Critically Ill Patients Urinary Catheter Date of Insertion: 03/31/22 Urinary Catheter Time of Insertion: 15:45 Discharge Data Studies Completed and Pending Completed Studies During Hospitalization Category Date Time Status CT head wo con* [id number] Routine Cat Scan 04/01/22 12:20 Completed XR chest 1V portable [id number] Routine Exams 03/31/22 07:13 [place] [id number] Routine Ultrasound 03/31/22 07:13 Completed Radiology Impressions Chest X-Ray 03/31/22 07:13 IMPRESSION: 1. Mild perihilar interstitial opacities, suggestive of mild pulmonary edema. No confluent airspace opacities in the lungs. 2. Unchanged mild cardiomegaly. Duplex Scan Lower Extremity Artery 03/31/22 07:13 IMPRESSION: Unremarkable lower extremity arterial Doppler evaluation. Head CT 04/01/22 12:20 IMPRESSION: 1. No evidence of intracranial hemorrhage or mass effect. 2. Mild small vessel changes. Mild parenchymal volume loss. 3. No acute intracranial findings. Laboratory Results WBC 5.1 10^3/uL (4.0-10.0) 04/02/22 04:47 RBC 4.80 10^6/uL (4.1-5.3) 04/02/22 04:47 Hgb 13.7 g/dL (11.5-15.3) 04/02/22 04:47 Hct 45.3 % (37.0-47.0) 04/02/22 04:47 MCV 94.4 fl (81-99) 04/02/22 04:47 MCH 28.5 pg (28.0-34.0) 04/02/22 04:47 MCHC 30.2 g/dL (30.0-36.0) 04/02/22 04:47 RDW 15.9 % (12.1-15.1) H 04/02/22 04:47 Plt Count 125 10^3/cmm (130-400) L 04/02/22 04:47 MPV 12.3 fL (7.4-10.4) H 04/02/22 04:47 Neut % (Auto) 56.2 % 04/02/22 04:47 Lymph % (Auto) 26.8 % 04/02/22 04:47 Ponce % (Auto) 10.1 % 04/02/22 04:47 Eos % (Auto) 5.9 % 04/02/22 04:47 Baso % (Auto) 0.6 % 04/02/22 04:47 Neut # (Auto) 2.85 10^3/uL (1.8-7.7) 04/02/22 04:47 Lymph # (Auto) 1.4 10^3/uL (0.8-4.8) 04/02/22 04:47 Ponce # (Auto) 0.5 10^3/uL (0.2-0.9) 04/02/22 04:47 Eos # (Auto) 0.3 10^3/uL (0.0-0.8) 04/02/22 04:47 Baso # (Auto) 0.0 10^3/uL (0.0-0.1) 04/02/22 04:47 Nucleated RBC % (auto) 0.6 % 04/02/22 04:47 Nucleated RBCs # 0.0 /100WBC 04/02/22 04:47 Specimen Type Arterial 04/01/22 12:31 Sample Site Radial, left 04/01/22 12:31 ABG pH 7.43 (7.35-7.45) 04/01/22 12:31 ABG pCO2 62.7 mmHg (35-45) H* 04/01/22 12:31 ABG pO2 75.9 mmHg (80.0-100.0) L 04/01/22 12:31 ABG HCO3 41.9 mmol/L (22-26) H 04/01/22 12:31 ABG Base Excess 14.7 mmol/L (-2.0-2.0) H 04/01/22 12:31 Trever Test Pos 04/01/22 12:31 Hematocrit 39.9 % (37-47) 04/01/22 12:31 O2 Delivery Device Nc 04/01/22 12:31 O2 Liters/Min 3.0 % 04/01/22 12:31 FiO2 32.0 % 03/31/22 09:58 Control Clerk ID Cak 04/01/22 12:31 Sodium 140 mmol/L (136-145) 04/02/22 04:47 Potassium 3.7 mmol/L (3.5-5.1) 04/02/22 04:47 Chloride 93 mmol/L (98-107) L 04/02/22 04:47 Carbon Dioxide 37 mmol/L (22-29) H 04/02/22 04:47 Anion Gap 13.7 (5-19) 04/02/22 04:47 BUN 24 mg/dL (8-23) H 04/02/22 04:47 Creatinine 1.2 mg/dL (0.5-0.9) H 04/02/22 04:47 GFR Calculation Not Reportable 04/02/22 04:47 Glucose 89 mg/dL (65-115) 04/02/22 04:47 POC Glucose 267 mg/dL (70-110) H 04/02/22 11:05 Estimat Average Glucose 131 03/31/22 02:05 Hemoglobin A1c 6.2 % (4.0-6.0) H 03/31/22 02:05 Calculated Osmolality 294 mOsm/kg (285-295) 04/02/22 04:47 Calcium 9.9 mg/dL (8.5-10.5) 04/02/22 04:47 Magnesium 1.8 mg/dL (1.7-2.3) 03/31/22 02:05 Total Bilirubin 0.7 mg/dL (0.15-1.2) 04/02/22 04:47 AST 50 U/L (0-32) H 04/02/22 04:47 ALT 27 U/L (0-33) 04/02/22 04:47 Alkaline Phosphatase 55 U/L (35-105) 04/02/22 04:47 C-Reactive Protein 14.4 mg/L (0.0-4.9) H 03/31/22 02:05 Total Protein 7.3 g/dL (6.6-8.7) 04/02/22 04:47 Albumin 3.4 g/dL (3.5-5.2) L 04/02/22 04:47 Globulin 3.9 g/dL (1.3-4.6) 04/02/22 04:47 TSH 1.30 uIU/mL (0.27-4.20) 04/01/22 13:00 Urine Opiates Screen Negative ng/mL (Negative) 04/01/22 14:14 Ur Barbiturates Screen Negative ng/mL (Negative) 04/01/22 14:14 Ur Phencyclidine Scrn Negative ng/mL (Negative) 04/01/22 14:14 Ur Amphetamines Screen Negative ng/mL (Negative) 04/01/22 14:14 U Benzodiazepines Scrn Negative ng/mL (Negative) 04/01/22 14:14 Urine Cocaine Screen Negative ng/mL (Negative) 04/01/22 14:14 U Marijuana (THC) Screen Negative ng/mL (Negative) 04/01/22 14:14 Vitals Last Vital Signs Temp 97.8 F 04/02/22 13:23 Pulse 65 04/02/22 14:00 Resp 21 H 04/02/22 14:00 BP 152/97 04/02/22 15:00 Pulse Ox 97 04/02/22 14:00 O2 Del Method 04/02/22 14:00 O2 Flow Rate 1 04/02/22 14:00 FiO2 30 04/02/22 04:00 Discharge Plan Discharge Patient Disposition: Home Prescriptions: Continued oxycodone-acetaminophen [Percocet] 5-325 mg tablet 1 tab PO TID PRN (Reason: Pain) ibuprofen 800 mg tablet 800 mg PO TID PRN (Reason: Pain) pregabalin [Lyrica] 225 mg capsule 225 mg PO BID ropinirole 1 mg tablet 1 mg PO TID duloxetine 60 mg capsule, delayed rel sprinkle 60 mg PO DAILY potassium chloride [Klor-Con M20] 20 mEq tablet,ER particles/crystals 20 meq PO DAILY Combivent Respimat 20-100 mcg/actuation mist 1 puff INHALATION Q6H PRN (Reason: Shortness Of Breath) furosemide 40 mg tablet 40 mg PO DAILY polyethylene glycol 3350 [Miralax] 17 gram/dose powder 17 gm PO DAILY PRN (Reason: Constipation) timolol 0.5 % drops 1 drop ophthalmic (eye) DAILY sennosides-docusate sodium [Senna with Docusate Sodium] 8.6-50 mg tablet 1 tab-cap PO DAILY lansoprazole 30 mg capsule,delayed release(DR/EC) 30 mg PO DAILY albuterol sulfate 90 mcg/actuation HFA aerosol inhaler 2 inh INHALATION Q4H PRN (Reason: shortness of breath or wheezing) Qty: 18 0RF oxybutynin chloride 5 mg Tablet 5 mg PO DAILY tizanidine 2 mg Capsule 2 - 4 mg PO TID PRN (Reason: Muscle Pain) Daily-Camila Tablet 1 tab PO QAM atorvastatin 80 mg tablet 80 mg PO DAILY diclofenac sodium 3 % gel 1 applic TOPICAL QID albuterol sulfate 2.5 mg /3 mL (0.083 %) solution for nebulization 2.5 mg continuous nebulization Q6H PRN (Reason: Shortness Of Breath) naloxone 0.4 mg/mL Solution 0.4 mg SUBCUT Q2M PRN (Reason: Opioid Overdose) Rx Instructions: NTExceed 10 mg total dose/episode Klonopin 0.5 mg tablet 5 mg PO BEDTIME atenolol 25 mg tablet 25 mg PO BID levothyroxine 50 mcg tablet 50 mcg PO DAILY bisacodyl 10 mg suppository 10 mg MO DAILY PRN (Reason: Constipation) codeine-guaifenesin 10-100 mg/5 mL liquid 10 ml PO Q4H PRN (Reason: Cough) ergocalciferol (vitamin D2) [Vitamin D2] 1,250 mcg (50,000 unit) Capsule 1,250 mcg PO DAILY Nyamyc 100,000 unit/gram powder 1 applic TOPICAL Q12H PRN (Reason: Rash) nitrofurantoin monohyd/m-cryst 100 mg capsule 100 mg PO DAILY lactulose 10 gram/15 mL solution 15 - 30 ml PO BID PRN (Reason: Constipation) fenofibrate 160 mg tablet 160 mg PO DAILY Discontinued insulin detemir U-100 100 unit/mL (3 mL) insulin pen 80 unit SUBCUT BID glipizide 5 mg tablet 5 mg PO BID Trulicity 0.75 mg/0.5 mL pen injector 0.75 mg SUBCUT Q7D Discharge Orders: Discharge Order (Routine); Ordered 04/02/22 Ordered By: Toña Carvajal Referrals: Curtis Sepulveda [Primary Care Provider] - (Need for follow up after hospital visit. Office will call daughter Idania Gonzalez [phone] for this one week follow up appointment , Cortney has a physican follow up on April 16, 2022 ) Patient Instructions: Hypoglycemia in a Person with Diabetes (DC), Using Oxygen at Home (DC), Meal Planning with Diabetes Exchanges (DC), What to Do if Your Blood Sugar is Low (DC), Opioid Safety Discharge Attestations Time Spent in Discharge Care*: greater than 30 min Quality Metrics Clinical Quality Measures [ No reported AMI, CVA or VTE this stay] Coding Level of Care Code Acute Chg FW DC note Diagnoses DM type 2 (diabetes mellitus, type 2) E11.9 Neuropathy G62.9 Hypertension I10 Restless leg syndrome G25.81 Opioid dependence, daily use F11.20 Acute on chronic respiratory failure with hypoxia and hypercapnia J96.21; J96.22
--- NOTE | 2022-04-02 12:33 | PC.NURSE ---
Family contacted about discharge orders and transportation arrangements. Family will arrive around 1400. Rowe catheter has been removed and patient is up to chair in room with assistance X2 nurses. Patient states she does not walk at home only transfers from wheelchair to recliner and such. Case management aware of nurse concerns with lack of mobility. Case management confirms patient receives in-home care five days a week.
[2022-04-02] MEDS: enoxaparin 40 mg/0.4 mL Syringe SUBCUT (13:12)
--- NOTE | 2022-04-02 15:21 | PC.NURSE ---
Extensive discharge education given to patient and patient daughter, Katina. Printed discharge information highlighted and discussed. Follow up care discussed. Patient plans to stay with granddaughter, priscilla who takes care of her at home. Patient verbally agreed to wear oxygen and follow diabetic diet plan at home. Patient verbally agreed to comply with medications prescribed. Patient brought by wheelchair to [employer] personal vehicle with daughter as recycling collections driver.
== END 2022-04-02 14:58 | disposition home or self-care (01) | DRG 637 ==
PROVIDERS: Admitting Provider Internal Medicine; PCP Family Medicine; Visit Provider Student in an Organized Health Care Education/Training Program
DX: E11.649 Type 2 diabetes mellitus with hypoglycemia without coma (principal); J96.21 Acute and chronic respiratory failure with hypoxia; J96.22 Acute and chronic respiratory failure with hypercapnia; F11.20 Opioid dependence, uncomplicated; E11.42 Type 2 diabetes mellitus with diabetic polyneuropathy; Z99.81 Dependence on supplemental oxygen; I27.81 Cor pulmonale (chronic); Z86.73 Personal history of transient ischemic attack (TIA), and cerebral infarction without residual deficits; I11.0 Hypertensive heart disease with heart failure; I50.9 Heart failure, unspecified; G25.81 Restless legs syndrome; Z98.1 Arthrodesis status; Z99.3 Dependence on wheelchair; G47.33 Obstructive sleep apnea (adult) (pediatric); Z91.199 Patient's noncompliance with other medical treatment and regimen due to unspecified reason; Z87.891 Personal history of nicotine dependence; T38.3X5A Adverse effect of insulin and oral hypoglycemic [antidiabetic] drugs, initial encounter
CPT/HCPCS: 36415; 36416; 36600; 51702; 70450; 71045; 80048; 80053; 80306; 82803; 82962; 83036; 83735; 84443; 85025; 86140; 93925; 94003; 94640; 94660; 96372; J1650; J1815; J1940; J2920